=== PATIENT | male | born 1960 | race Caucasian/White ===

== ENCOUNTER 2019-09-26 16:42 | Inpatient (IN) | payer MEDICARE, MEDICAID, SELFPAY ==
[2019-09-26] VITALS (7 sets, daily range): BP systolic 116–153; BP diastolic 75–95; PULSE 76–90; RESP 13–20; TEMP 36.4; O2SAT 92–96; BMI 32.3
--- NOTE | 2019-09-26 16:44 | ED_ITS ---
Entered by Deonte Rudolph, acting as scribe for HPI - Chest Pain General: Chief Complaint: Chest Pain Stated Complaint: STEMI Time Seen by Provider: 09/26/19 16:58 History of Present Illness: HPI narrative: 59 yo male presents with chest pain. Pt states that his pain radiates to his arms and his back. Pt states that he has had this for a few days. Pt states that some sweating with his pain. Patient has had the pain intermittently last few days is not really changed in intensity is been coming and going while at rest he denies noticing anything that seems to exacerbate or worsen him. He has no known history of coronary artery disease. Patient is a known diabetic. Also has a history of hypertension. MD complaint: chest pain Prior episodes: No Onset: during rest Pain radiation: right arm, left arm and back Severity: moderate Quality: tightness and sharp Relieving factors: nothing Exacerbating factors: exertion Associated symptoms: Reports dyspnea; Deny abdominal pain, fever(s), nausea, palpitations, syncope or vomiting Treatment prior to arrival: nitroglycerin and oxygen Review of Systems Const: Denies: fever, chills, body aches, fatigue, malaise or night sweats Eyes: Denies: change in vision or blurry vision ENMT: Denies: throat pain, oral sores/lesions, dental pain, nasal discharge or nasal congestion Card: Reports: chest pain; Denies: palpitations, irregular heart rhythm, edema, syncope, shortness of julia ath on exertion, shortness of breath when lying down or leg pain with exertion Resp: Reports: shortness of breath GI: Denies: abdominal pain, nausea, vomiting, vomiting blood, coffee grounds in vomit, difficulty swallowing, heartburn/indigestion, diarrhea, constipation, cramping, blood in stool or black tarry stool : Denies: flank pain, difficulty urinating, painful urination, urinary frequency, urinary urgency, urinary incontinence or blood in urine Musc: Denies: neck pain, back pain, extremity pain, extremity swelling, joint pain or joint swelling Skin/Breast: Denies: rash, itching or redness Neuro: Denies: headache, numbness in extremities, weakness in extremities, changes in sensation, lack of coordination, difficulty walking, frequent falls, dizziness, vertigo or confusion Psych: Denies: anxiety, depression, loss of interest, visual hallucinations, auditory hallucinations, suicidal ideation or homicidal ideation Endo: Denies: excessive urination, excessive thirst, tired all the time or cold intolerance Evan/Lymph: Denies: easy bruising, easy bleeding, petechiae, enlarged lymph nodes or tender lymph nodes PFSH ED PFSH: Social History Smoking and tobacco status: former smoker Second hand smoke exposure: No Alcohol intake: never Desire information about alcohol rehabilitation?: No Counseling given: No Desire information about substance/drug rehabilitation?: No Counseling given: No Physical Exam Const: COMMON NORMALS: average body habitus, oriented x3 and alert GENERAL APPEARANCE: cooperative and well developed; not comfortable and not well kempt NUTRITIONAL APPEARANCE: obese ORIENTATION/CONSCIOUSNESS: Yes awake, Yes oriented to person and Yes oriented to place HENMT: COMMON NORMALS: normocephalic, head/scalp atraumatic, EAC's normal, TM's normal bilaterally, external nose normal, moist oral mucous membranes and oropharynx normal HEAD & SCALP: normocephalic and atraumatic NOSE: external nose normal EXTERNAL AUDITORY CANAL: EAC's normal TYMPANIC MEMBRANE: TM's normal bilaterally MOUTH: oral and palatal mucosa normal, lip normal and tongue normal THROAT: posterior oropharynx normal and tonsils normal Eye: COMMON NORMALS: PERRL, EOMs intact bilaterally, conjunctivae normal and no scleral icterus CONJUNCTIVA: Yes conjunctivae normal PUPIL: Yes PERRL Neck/C-Spine: COMMON NORMALS: full ROM, no lymphadenopathy, supple, no meningeal signs and thyroid normal THYROID: thyroid normal and asymmetrical Lymph: LYMPHATIC: no lymphadenopathy noted Resp: COMMON NORMALS: normal respiratory effort, no retractions, no use of accessory muscles and clear to auscultation bilaterally AUSCULTATION: clear to auscultation bilaterally Cardio: COMMON NORMALS: regular rate and regular rhythm RATE: regular rate RHYTHM: regular rhythm HEART SOUNDS: no murmurs GI: COMMON NORMALS: normal to inspection, nondistended, normoactive bowel sounds, soft to palpation and no hepatosplenomegaly PALPATION: Yes soft and Yes no hepatosplenomegaly : COMMON NORMALS: Yes no CVA tenderness BLADDER/KIDNEY EXAM: Yes no CVA tenderness Back/Pelvis: COMMON NORMALS: no CVA tenderness LUMBAR SPINE/LOWER BACK: Yes normal to inspection Extremity: COMMON NORMALS: no clubbing, cyanosis or edema, no calf tenderness and no pedal edema Neuro: COMMON NORMALS: oriented x3 SENSORIUM/ORIENTATION: Yes alert, Yes oriented to person and Yes oriented to place MENINGEAL SIGNS: Yes no meningeal signs Psych: APPEARANCE: No well kempt Skin: COMMON NORMALS: no rashes or lesions noted and skin turgor normal GENERAL SKIN EXAM: no rashes or lesions noted and turgor normal Course ED course: Review acute EKG shows acute STEMI. STEMI protocols initiated and cardiology called Dr. Mehta reviewed the EKG in the emergency room and is planning to take the patient to the [facility]. Vital Signs: Vital signs: Vital Signs Temperature 97.6 F 09/26/19 16:42 Pulse Rate 83 09/27/19 01:43 Respiratory Rate 20 H 09/26/19 21:36 Blood Pressure 139/91 09/26/19 18:49 Pulse Oximetry 96 09/27/19 01:43 MDM - Chest Pain Lab Data: Labs: Lab Results 09/26/19 09/26/19 09/26/19 Range/Units 16:30 16:30 16:30 WBC 18.4 H (4.0-10.0) 10^3/ uL RBC 4.92 (4.1-5.3) 10^6/u L Hgb 14.2 (11.7-16.6) g/dL Hct 42.8 (42.0-52.0) % MCV 87.0 (80-94) fL MCH 28.9 (28.0-34.0) pg MCHC 33.2 (30.0-36.0) g/dL RDW 14.0 (12.1-15.1) % Plt Count 429 H (130-400) 10^3/c mm MPV 9.5 (7.4-10.4) fL Neut % (Auto) 63.1 % Lymph % (Auto) 24.8 % [place] % (Auto) 10.2 % Eos % (Auto) 1.1 % Baso % (Auto) 0.3 % Neut # (Auto) 11.6 H (1.8-7.7) 10^3/u L Lymph # (Auto) 4.6 (0.8-4.8) 10^3/u L [place] # (Auto) 1.9 H (0.2-0.9) 10^3/u L Eos # (Auto) 0.2 (0.0-0.8) 10^3/u L Baso # (Auto) 0.1 (0.0-0.1) 10^3/u L Nucleated RBC % (a uto) 0 % Nucleated RBCs # 0.0 /100WBC PT 14.20 H (10.5-13.3) SECO NDS INR 1.07 (0.8-1.2) APTT 25.7 (23.9-36.7) SECO NDS Sodium 139 (136-145) mmol/L Potassium 3.9 (3.5-5.1) mmol/L Chloride 99 (98-107) mmol/L Carbon Dioxide 24 (22-29) mmol/L Anion Gap 19.9 H (5-19) BUN 15 (8-23) mg/dL Creatinine 1.0 (0.7-1.2) mg/dL GFR Calculation 76.2 L (90-130) mL/min Glucose 131 H (65-115) mg/dL Calcium 11.0 H (8.5-10.5) mg/dL Total Bilirubin 0.4 (0.15-1.2) mg/dL AST 26 (0-40) U/L ALT 30 (0-41) U/L Alkaline Phosphata se 42 (40-130) IU/L Troponin T Baselin e (0-15) ng/mL Troponin T 120 Min [place] (0-15) ng/mL Delta Troponin T (0-10) ABS# Total Protein 8.1 (6.6-8.7) g/dL Albumin 4.6 (3.5-5.2) g/dL Globulin 3.5 (1.3-4.6) g/dL 09/26/19 09/26/19 Range/Units 16:30 18:27 WBC (4.0-10.0) 10^3/ uL RBC (4.1-5.3) 10^6/u L Hgb (11.7-16.6) g/dL Hct (42.0-52.0) % MCV (80-94) fL MCH (28.0-34.0) pg MCHC (30.0-36.0) g/dL RDW (12.1-15.1) % Plt Count (130-400) 10^3/c mm MPV (7.4-10.4) fL Neut % (Auto) % Lymph % (Auto) % [place] % (Auto) % Eos % (Auto) % Baso % (Auto) % Neut # (Auto) (1.8-7.7) 10^3/u L Lymph # (Auto) (0.8-4.8) 10^3/u L [place] # (Auto) (0.2-0.9) 10^3/u L Eos # (Auto) (0.0-0.8) 10^3/u L Baso # (Auto) (0.0-0.1) 10^3/u L Nucleated RBC % (a uto) % Nucleated RBCs # /100WBC PT (10.5-13.3) SECO NDS INR (0.8-1.2) APTT (23.9-36.7) SECO NDS Sodium (136-145) mmol/L Potassium (3.5-5.1) mmol/L Chloride (98-107) mmol/L Carbon Dioxide (22-29) mmol/L Anion Gap (5-19) BUN (8-23) mg/dL Creatinine (0.7-1.2) mg/dL GFR Calculation (90-130) mL/min Glucose (65-115) mg/dL Calcium (8.5-10.5) mg/dL Total Bilirubin (0.15-1.2) mg/dL AST (0-40) U/L ALT (0-41) U/L Alkaline Phosphata se (40-130) IU/L Troponin T Baselin e 28 H (0-15) ng/mL Troponin T 120 Min [place] 1707 H (0-15) ng/mL Delta Troponin T 1679 H* (0-10) ABS# Total Protein (6.6-8.7) g/dL Albumin (3.5-5.2) g/dL Globulin (1.3-4.6) g/dL Discharge Plan Discharge Patient Disposition: Admitted As Inpatient Admit Provider: Hernandez Faria Clinical Impression: ST elevation (STEMI) myocardial infarction, Diabetes, Acute coronary syndrome, Essential hypertension Condition: Stable Referrals: Merna Chavez, SAFETY AND HEALTH MANAGER [Primary Care Provider] - Coding Level of Care Code ED Data Entry Representative for Chg Fwd Exam Comprehensive The documentation recorded by the Ronni lynn Kialy, accurately reflects the service I personally performed and the decisions made by Darian black Curtis L, DO Sep 26, 2019 17:00
[2019-09-26] MEDS: ticagrelor 90 mg Tablet 180 MG PO (16:54)
[2019-09-26] MEDS: morphine 4 mg/mL SDV 1 mL 2 MG IVP (16:55)
--- NOTE | 2019-09-26 16:55 | XACV_ITS ---
Ht: 178 cm Wt: 102 kg BSA: 2.28 m2 Gender: Male : 1960 Exam Priority: Routine Procedure(s): Procedure Description: Diagnostic procedure Procedure Description: PCI procedure Procedure Description: Drug Eluting Coronary Stent Procedure Description: PTCA Procedure Description: Miscellaneous Procedure Description: ACT Procedure Description: Coronary Angiography Diagnostic Cath Status: Elective Diagnostic Findings LM has 0% stenosis. CX has 0% stenosis. Proximal Left Anterior Descending Coronary Artery: Severe 100% stenosis, MARILY: 0 flow. RPDA: Mild 40% stenosis, MARILY: 3 flow. Coronary angiography shows right dominance. PCI Status: Urgent PCI Indication: STEMI - Immediate PCI for STEMI Interventional Findings Proximal Left Anterior Descending Coronary Artery: 100% stenosis treated with AB MINI TREK 2.00X20 RX BALLOON, REID Sidhu NINOSKA 3.5X34 JANIE, and MDT NATHANIEL EUPHORA RX [id number] BALLOON. 0% residual stenosis, MARILY: 3 flow. Conclusions There is severe coronary artery disease with two vessel disease. Proximal Left Anterior Descending Coronary Artery was treated with two Balloon and Drug Eluting Stent. Recommendations 1-Return to inpatient for close monitoring and routine cath care2-Risk factor modification for secondary prevention3-Statin and aspirin 81 mg life-long, if tolerated4-Patient was pre-loaded with 600 mg of Plavix, continue Plavix 75mg p.o. daily for at least one year. We will assess at the end of one year again to continue if further or not5-Continue optimal medical management6-Follow up with Dr. Faria in four weeks and your primary care in 10 days. Diagnostic RX Recommendation: PCI w/o planned CABG Pressures Phase:Rest AO : 137 mmHg / 78 mmHg ( 103 mmHg ) @ 11:41:00 AM Clinical Evaluation EBL: 5mL-10mL Procedural Details Procedure Consent Obtained. Pre-Procedure Time Out. Identified patient by full name and date of as verbalized by the patient/guarantor. Does the consent match the physician's order: Yes. Accurate & Complete Informed Consent: Yes. Inpatient/Outpatient History & Physical on Chart: N/A Emergent; Informed Consent not obtained due to time critical life threat. If H&P is completed, is and addenduem needed: N/A Emergent; Informed Consent not obtained due to time critical life threat; If yes, is the addendum complete: N/A Emergent; Informed Consent not obtained due to time critical life threat. Visualize and Verify Site with Patient/Guarantor: N/A. Relevant Radiology Images available: N/A Emergent; Informed Consent not obtained due to time critical life threat. Pre-op teaching completed and patient verbalized understanding. The risks, benefits, and alternatives of sedation and/or procedure were discussed by physician. The patient agrees to continue. Procedure started. Patient received the following in the ED prior to arrival in labor delivery specialist: 324mg Aspirin, 8mg Zofran, 2mg Nitro, 180mg Berlinta. Correct patient, site and procedure confirmed by cath team. Current diagnosis: STEMI. PERRLA. Strong, equal hand cognos consultant bilaterally. Lungs clear x 5 lobes. IV Site on Arrival: 20 gauge in the left anticubital. IV Site on Arrival: 20 gauge in the right forearm. IV Fluids: 0.9% NaCl at KVO. 0 mL infused prior to labor delivery specialist. Pre Procedural Pulses: bilateral dorsalis pedis was 2+. Pre Procedural Pulses: bilateral posterior tibial was 2+. Pre Procedural Pulses: bilateral radial was 3+. Oxygen started at 2liters/min via nasal canula. bilateral groins was prepped with chloroprep then draped in the usual sterile fashion. right radial was prepped with chloroprep then draped in the usual sterile fashion. Baseline sample Acquired. HR: 77 BPM. Physician arrived. Equipment: 6F - Radial. Contraqer Manifold Kit Model BT 2000. Cardiac Cath Pack. Heparinized Saline (2 units/mL), 1000 mL bag. Physician scrubbed in. Immediate Pre-Procedure Time Out. Correct Patient: Yes; Correct Procedure: Yes; Correct Site: Yes; Correct Patient Position: Yes; Correct Supplies: Yes; Dried Flammable Prep: Yes; Blood Products Available: No;. Lidocaine 1% infiltrated to the right radial. Arterial access obtained. A 5 brit[place] virgin islander TIG catheter in over wire. Multiple views taken of left coronary artery. Catheter redirected to the RCA. Multiple views taken of right coronary artery. Catheter out. 6 british virgin islander XB 3.5 guide catheter was inserted over the wire. Runthrough guidewire was advanced through the guide catheter to lesion in the prox LAD. Inflation number : 1 A AB MINI TREK 2.00X20 RX BALLOON was prepped and advanced across the Prox LAD , then inflated to 16 STEVEN for 0:22 seconds. Inflation number: 2 The AB MINI TREK 2.00X20 RX BALLOON was reinflated across the Prox LAD, to 16 STEVEN for 0:15 seconds. Balloon out. Inflation Number : 3 A MDT R NINOSKA 3.5X34 JANIE -Lot Number# [id number] was prepped and advanced across the Prox LAD. The stent was deployed at 12 STEVEN for 0:36 seconds. Stent expiration date: 03/23/2021. Stent balloon out over wire. Inflation number : 4 A MDT NC EUPHORA RX [id number] BALLOON was prepped and advanced across the Prox LAD , then inflated to 12 STEVEN for 0:27 seconds. Inflation number: 5 The MDT NC EUPHORA RX [id number] BALLOON was reinflated across the Prox LAD, to 10 STEVEN for 0:19 seconds. Results checked. ACT drawn. Results 256 seconds. Therapeutic limits - pre-heparin administration 90-150 seconds and monitoring heparin during a vascular procedure >250 seconds. Balloon out. Wire out. Guide catheter out. TR band placed. Hemostasis obtained. Post Procedure: Pulses reassessed and unchanged. PERRLA. Strong, equal hand cognos consultant bilaterally. No VTE prophylaxis required. Medication's Wasted: Lidocaine 1% = 5 mL. Medication's Wasted: Heparin = 1000 units mg. Total IV fluids: 100 mL. PCI Indication: STEMI. [facility] Clinical Fraility Score: 3: Managing Well. Senior Mobile Solutions Architect Indications: New Onset Angina. Chest Pain Symptom Assessment: Typical Angina Symptoms. Cardiovascular Instability: No. A TR Band was successful obtaining hemostatsis at the Right Radial artery insertion site. Contrast type used: Omnipaque 300 mgI/mL, 500 mL bottle. Post-op diagnosis: STEMI. Complications: None. Estimated blood loss: 5mL-10mL. Procedure completed. Vital chart was stopped. Patient transferred by wheelchair to CPRU. Site: Right Radial artery Sheath Size: 6 Fr Hemostasis Method: TR Band Hemostasis Success: Successful Procedure Medications Start: 5:10 PM Stop: 5:10 PM Medication: Versed Amount: 1 mg Route: I.V. Start: 5:10 PM Stop: 5:10 PM Medication: Fentanyl Amount: 50 mcg Route: I.V. Start: 5:14 PM Stop: 5:14 PM Medication: Heparin Amount: 7000 units Route: I.V. Start: 5:27 PM Stop: 5:27 PM Medication: Versed Amount: 1 mg Route: I.V. Start: 5:29 PM Stop: 5:29 PM Medication: Aggrastat 12.5 mg/250 mL Amount: 51 ml Route: I.V. bolus Start: 5:30 PM Stop: 5:30 PM Medication: Aggrastat 12.5 mg/250 mL Amount: 18.4 ml/hr Route: I.V. drip Start: 5:35 PM Stop: 5:35 PM Medication: Fentanyl Amount: 50 mcg Route: I.V. Start: 5:42 PM Stop: 5:42 PM Medication: Heparin Amount: 3000 units Route: I.V. I, the attending physician, have reviewed and verified all procedure medications. Yes, all medications given per verbal order History/Risk Factors Hypertension: No Dyslipidemia: No Peripheral Arterial Disease (PAD): No Myocardial Infarction (WI): No Obesity: Yes Renal Disease: No Tobacco Use: Former Prior Interventions PCI: No CABG: No Valve Surgery: No Report Signatures Finalized by:Hernandez Faria MD on 10/10/2019 7:19:17 PM
--- NOTE | 2019-09-26 16:58 | ECG_ITS ---
Measurements Intervals [place] Rate: 73 P: 63 LA: 197 QRS: -26 QRSD: 98 T: -10 QT: 400 QTc: 443 SINUS RHYTHM BORDERLINE LEFT AXIS DEVIATION [QRS AXIS < -20] MARKED ST ELEVATION, CONSIDER ANTEROSEPTAL INJURY [MARKED ST ELEVATION W/O NOR NORMALLY INFLECTED T WAVE IN V1-V4] ACUTE [place] Compared to ECG 11/15/2016 07:12:00 ST (T wave) deviation now present Myocardial infarct finding now present Electronically Signed On 09-27-2019 17:09:45 CLOTH STRETCHER by Fatmata Trejo M.D. [email or web address]
--- NOTE | 2019-09-26 17:04 | P.HP_ITS ---
Providers/Chief Complaint Admitting Physician: Hernandez Faria MD Primary Care Provider: DOMINIQUE Leigh Chief Complaint: STEMI History of Present Illness López Gamez is a 59 year old male brought in by EMS with chest pain and route EKG was suspicious for slight ST elevation in the septal leads with inferior lead ST depression. According to the patient this is going on for the last 2 days he was suffering from pain off and on basis but for the last couple of hours it is more consistent and intense therefore he decided to call EMS. He was given 325 mg of aspirin and 2 nitroglycerin along with 8 of Zofran. He felt somewhat better. Twelve-lead EKG in the ER was consistent with mild inferior lead ST depression with slight anterior ST elevation. Since patient continues to have chest pain we decided to take him to the [facility]. His past medical history significant for continuous tobacco abuse, diabetes mellitus and hypertension. He denies any history of CVA or bleeding. Review of Systems Const: Denies: fever, chills, body aches, fatigue, malaise or night sweats Eyes: Denies: change in vision or blurry vision ENMT: Denies: throat pain, oral sores/lesions, dental pain, nasal discharge or nasal congestion Card: Reports: chest pain; Denies: palpitations, irregular heart rhythm, edema, syncope, shortness of breath on exertion, shortness of breath when lying down or leg pain with exertion GI: Denies: abdominal pain, nausea, vomiting, vomiting blood, coffee grounds in vomit, difficulty swallowing, heartburn/indigestion, diarrhea, constipation, cramping, blood in stool or black tarry stool : Denies: flank pain, difficulty urinating, painful urination, urinary frequency, urinary urgency, urinary incontinence or blood in urine Musc: Denies: neck pain, back pain, extremity pain, extremity swelling, joint pain or joint swelling Skin/Breast: Denies: rash, itching or redness Neuro: Denies: headache, numbness in extremities, weakness in extremities, changes in sensation, lack of coordination, difficulty walking, frequent falls, dizziness, vertigo or confusion Psych: Denies: anxiety, depression, loss of interest, visual hallucinations, auditory hallucinations, suicidal ideation or homicidal ideation Endo: Denies: excessive urination, excessive thirst, tired all the time or cold intolerance Evan/Lymph: Denies: easy bruising, easy bleeding, petechiae, enlarged lymph nodes or tender lymph nodes Medications/Allergies Allergies Allergy/AdvReac Type Severity Reaction Status Date / Time No Known Allergies Allergy Unverified 08/17/19 16:04 PFSH Acute PFSH: Medical History (Updated 09/26/19 @ 17:07 by Hernandez Faria MD) COPD (chronic obstructive pulmonary disease) Patient is currently well controlled with Trelegy and rescue inhaler Diabetes Patient has DM II and is on oral meds. Paitent's glucose remains elevated, continue to titrate medications. Essential hypertension, benign Infection of toe web Patient has been treated for infection of foot with oral and topical meds. Vitamin D deficiency Surgical History S/P cholecystectomy 2017 Dr. Mcgill Social History Smoking and tobacco status: former smoker Second hand smoke exposure: No Alcohol intake: never Desire information about alcohol rehabilitation?: No Counseling given: No Desire information about substance/drug rehabilitation?: No Counseling given: No Vitals/I&O/Wt Last Vital Signs Temp 97.6 F 09/26/19 16:42 Pulse 76 09/26/19 17:00 Resp 18 09/26/19 17:00 BP 116/75 09/26/19 17:00 Pulse Ox 96 09/26/19 17:00 Weight last 48 hrs Weight 225 lb Physical Exam Narrative: EXAM NARRATIVE: GENERAL: Patient is alert, awake and oriented x3. He is in mild distress NECK: No jugular vein distension. HEENT: No cyanosis. No icterus. No pallor. HEART: Regular S1 and S2. No murmur, rub or gallop. LUNGS: Clear to auscultate bilaterally. ABDOMEN: Soft, nontender and nondistended. Positive bowel sounds. No guarding, rebound or tenderness. CENTRAL NERVOUS SYSTEM: Grossly nonfocal. EXTREMITIES: Lower extremities without edema bilaterally. A&P Assessment and plan (1) Acute coronary syndrome: Patient EKG and presentation is suspicious for acute coronary syndrome. Since he continues to have chest pain we will proceed with urgent coronary angiogram. He was loaded with Brilinta given aspirin and 4000 of heparin. Further plan will be advised as per progress of the patient. Status: Acute Code(s): I24.9 - Acute ischemic heart disease, unspecified (2) Essential hypertension: Patient dropped his blood pressure after nitro. No further nitroglycerin will be given at this moment. Continue IV fluid. Status: Acute Code(s): I10 - Essential (primary) hypertension (3) Diabetes: We will cover him with sliding scale for now. Status: Chronic Qualifiers: Diabetes mellitus type: type 2 Diabetes mellitus [facility] insulin use: without [facility] use Diabetes mellitus complication status: without complication Qualified Code(s): E11.9 - Type 2 diabetes mellitus without complications Code(s): E11.9 - Type 2 diabetes mellitus without complications Attestations Medical Necessity Statement*: I am expecting his stay to cross more than 2 midnights Coding Level of Care Code New Pt Acute Well Services Operator for [facility] Fwd Patient Type New History Detailed Exam Detailed Medical Decision Making High Complexity Diagnoses Acute coronary syndrome I24.9 Essential hypertension I10 Diabetes E11.9 Diabetes mellitus type: type 2 Diabetes mellitus medical terminologist insulin use: without [facility] use Diabetes mellitus complication status: without complication
[2019-09-26 17:08] LABS: Basophils # 0.1 10^3/uL (0.0-0.1); Basophils % 0.3 %; Eosinophils # 0.2 10^3/uL (0.0-0.8); Eosinophils % 1.1 %; Hematocrit 42.8 % (42.0-52.0); Hemoglobin 14.2 g/dL (11.7-16.6); Lymphocytes # 4.6 10^3/uL (0.8-4.8); Lymphocytes % 24.8 %; Mean Corpuscular HGB Conc 33.2 g/dL (30.0-36.0); Mean Corpuscular Hemoglobin 28.9 pg (28.0-34.0); Mean Platelet Volume 9.5 fL (7.4-10.4); Monocytes # 1.9 10^3/uL (0.2-0.9); Monocytes % 10.2 %; Neutrophils # 11.6 10^3/uL (1.8-7.7); Neutrophils % 63.1 %; Nucleated Red Blood Cells % 0 %; Platelet Count 429 10^3/cmm (130-400); Red Blood Count 4.92 10^6/uL (4.1-5.3); White Blood Count 18.4 10^3/uL (4.0-10.0)
[2019-09-26 17:13] LABS: INR 1.07 (0.8-1.2)
[2019-09-26 17:14] LABS: Partial Thromboplastin Time 25.7 SECONDS (23.9-36.7)
[2019-09-26 17:27] LABS: Alanine Aminotransferase 30 U/L (0-41); Albumin Level 4.6 g/dL (3.5-5.2); Alkaline Phosphatase 42 IU/L (40-130); Anion Gap 19.9 (5-19); Aspartate Amino Transferase 26 U/L (0-40); Blood Urea Nitrogen 15 mg/dL (8-23); Carbon Dioxide 24 mmol/L (22-29); Chloride 99 mmol/L (98-107); Globulin 3.5 g/dL (1.3-4.6); Glomerular Filtration Rate 76.2 mL/min (90-130); Glucose 131 mg/dL (65-115); Potassium 3.9 mmol/L (3.5-5.1); Sodium 139 mmol/L (136-145); Total Bilirubin 0.4 mg/dL (0.15-1.2); Total Protein 8.1 g/dL (6.6-8.7); Troponin(5th) Baseline 28 ng/mL (0-15)
--- NOTE | 2019-09-26 18:08 | USCV_ITS ---
López Gamez Age: 59 Gender: M : 1960 Exam Date: 09/26/2019 19:32 Ordering Phys: Hernandez Faria MD ([email or web address]) Technologist: Lorena Espino [place] [facility] [place]: [place]I BP: / HR: 81 Rhythm: Sinus Technical Quality: Adequate MEASUREMENTS (Male / Female) Normal Values 2D ECHO LV Diastolic Diameter PLAX 4.1 cm 4.2 - 5.9 / 3.9 - 5.3 cm LV Systolic Diameter PLAX 3.5 cm LV Chamber Size 3.0 cm IVS Diastolic Thickness 1.1 cm 0.6 - 1.0 / 0.6 - 0.9 cm IVS Systolic Thickness 1.7 cm LVPW Diastolic Thickness 1.6 cm 0.6 - 1.0 / 0.6 - 0.9 cm LVPW Systolic Thickness 2.6 cm RV Chamber Size 2.6 cm LVOT Diameter 2.0 cm LV Ejection Fraction 2D Teich 27.4 % LV Ejection Fraction MOD 2C 46.2 % LV Ejection Fraction 2C AL 47.3 % LA Diameter 4.1 cm LA Width 3.3 cm LA Height 4.9 cm RA Width 3.6 cm RA Height 4.7 cm M-MODE LV Diastolic Diameter MM 5.3 cm 4.2 - 5.9 / 3.9 - 5.3 cm LV Systolic Diameter MM 4.1 cm LV Ejection Fraction MM Teich 44.7 % IVS Diastolic Thickness MM 1.0 cm 0.6 - 1.0 / 0.6 - 0.9 cm IVS Systolic Thickness MM 1.2 cm LVPW Diastolic Thickness MM 0.9 cm 0.6 - 1.0 / 0.6 - 0.9 cm LVPW Systolic Thickness MM 1.2 cm Aortic Annulus Diameter 3.6 cm LA Ao Ratio MM 1.1 MV E Point Septal Separation 0.6 cm DOPPLER AV Peak Velocity 119.0 cm/s LVOT Peak Velocity 108.0 cm/s AV Area Cont Eq vti 3.1 cm squared AV Area Cont Eq pk 2.9 cm squared MV Area PHT 8.1 cm squared Mitral E to A Ratio 1.4 MV E' Velocity 13.0 cm/s Mitral E to MV E' Ratio 7.1 Mitral E to LV E' Lateral Ratio 6.1 Mitral E to LV E' Septal Ratio 8.5 TR Peak Velocity 126.0 cm/s TR Peak Gradient 6.4 mmHg TV Peak E Velocity 45.0 cm/s Right Atrial Pressure 3.0 mmHg Pulmonary Artery Systolic Pressu 9.4 mmHg PV Peak Velocity 73.0 cm/s RV Acceleration Time 0.2 s RV Ejection Time 0.4 s RV AcT/ET 0.6 FINDINGS Left Ventricle Normal left ventricular cavity size. Moderately decreased left ventricular systolic function. There appeared to be mid to distal anterior septal and apical severe hypokinesis consistent with LAD infarction.left ventricular ejection fraction is estimated at 40 %. Grade II/IV diastolic dysfunction, moderately elevated filling pressures. Right Ventricle The right ventricle is normal in size and function. Right Atrium The right atrium is normal in size. Left Atrium The left atrium is normal in size. Mitral Valve Mildly thickened mitral valve. No mitral valve stenosis. Moderate mitral valve regurgitation. Aortic Valve Structurally normal aortic valve without significant sclerosis or stenosis. There is no aortic regurgitation. Tricuspid Valve Structurally normal tricuspid valve without significant stenosis or regurgitation. Pulmonary artery systolic pressure is normal. Pulmonic Valve Structurally normal pulmonic valve without significant stenosis. There is no pulmonic regurgitation. Pericardium Normal pericardium without effusion. Aorta Normal ascending aorta dimension. CONCLUSIONS 1-Normal left ventricular cavity size. Moderately decreased left ventricular systolic function. There appeared to be mid to distal anterior septal and apical severe hypokinesis consistent with LAD infarction.left ventricular ejection fraction is estimated at 40 %. Grade II/IV diastolic dysfunction, moderately elevated filling pressures. 2-Mildly thickened mitral valve. No mitral valve stenosis. Moderate mitral valve regurgitation. 3-There is no pericardial effusion. 4-Pulmonary artery systolic pressure is within normal limits. 5-Right atrial pressure is around 5 mm of mercury. 6-There are no prior echocardiogram studies to compare. Hernandez Faria MD (Electronically Signed) Final Date: 28 September 2019 19:13 S
--- NOTE | 2019-09-26 18:28 | PC.NURSE ---
Received to CPRU Pt received to room from CPRU 4 post LHC. Alert and oriented. TR band intact to R radial, no hematoma or bleeding noted. Will monitor.
--- NOTE | 2019-09-26 19:00 | PC.NURSE ---
Report called REport called to [facility] in ICU at this time, all questions answered. Aggrastat discontinued at this time per Dr Faria orders.
[2019-09-26 19:09] LABS: Troponin 5 2HR 1707 ng/mL (0-15); Troponin 5 2HR Delta 1679 ABS# (0-10)
--- NOTE | 2019-09-26 19:23 | ECG_ITS ---
Measurements Intervals Floral Rate: 83 P: 63 ME: 192 QRS: -1 QRSD: 96 T: 72 QT: 383 QTc: 452 SINUS RHYTHM SEPTAL MYOCARDIAL INFARCTION [40+ ms Q WAVE IN V1/V2], PROBABLY RECENT Compared to ECG 11/15/2016 07:12:00 Myocardial infarct finding now present Electronically Signed On 09-27-2019 17:06:20 DUST PULLER by Fatmata Trejo M.D. [email or web address]
[2019-09-26] MEDS: atorvastatin 40 mg Tablet PO (21:35)
[2019-09-26] MEDS: ticagrelor 90 mg Tablet PO (21:35)
[2019-09-26] MEDS: morphine 4 mg/mL SDV 1 mL IVP (21:36)
[2019-09-26 22:45] LABS: Troponin 5 6HR 7861 ng/mL (0-15); Troponin 5 6HR Delta 7833 ng/L (0-12)
[2019-09-27 01:43] VITALS: PULSE 83; O2SAT 96
[2019-09-27 04:56] LABS: Basophils % 0.1 %; Eosinophils # 0.1 10^3/uL (0.0-0.8); Eosinophils % 0.6 %; Hematocrit 41.5 % (42.0-52.0); Hemoglobin 13.6 g/dL (11.7-16.6); Lymphocytes % 12.3 %; Mean Corpuscular HGB Conc 32.8 g/dL (30.0-36.0); Mean Corpuscular Hemoglobin 27.6 pg (28.0-34.0); Mean Corpuscular Volume 84.2 fL (80-94); Mean Platelet Volume 9.4 fL (7.4-10.4); Monocytes # 1.7 10^3/uL (0.2-0.9); Monocytes % 10.7 %; Neutrophils % 75.8 %; Nucleated Red Blood Cells % 0 %; Platelet Count 374 10^3/cmm (130-400); Red Blood Count 4.93 10^6/uL (4.1-5.3); Red Cell Distribution Width 14.2 % (12.1-15.1); White Blood Count 15.8 10^3/uL (4.0-10.0)
[2019-09-27 05:20] LABS: Anion Gap 18.6 (5-19); Blood Urea Nitrogen 10 mg/dL (8-23); Carbon Dioxide 25 mmol/L (22-29); Chloride 97 mmol/L (98-107); Chol HDL Ratio 5.13 mg/dL (1.0-5.00); Cholesterol 200 mg/dL (0-200); Glomerular Filtration Rate 98.6 mL/min (90-130); Glucose 195 mg/dL (65-115); HDL Cholesterol 39 mg/dL (60-100); LDL Cholesterol Calculated 113 mg/dL (50-129); Osmolality Calculated 285 mOsm/kg (285-295); Potassium 3.6 mmol/L (3.5-5.1); Sodium 137 mmol/L (136-145); Triglycerides 242 mg/dL (0-150)
[2019-09-27] MEDS: ticagrelor 90 mg Tablet PO ×2 (09:01→17:54)
[2019-09-27] MEDS: ondansetron 2 mg/ML SDV 2 mL 4 MG IVP (09:52)
[2019-09-27] MEDS: FUROsemide 10 mg/mL SDV 4mL 40 MG IVP (09:52)
--- NOTE | 2019-09-27 10:00 | PC.NURSE ---
Inquired if patient has a medication list which we might use to reconcile his meds in the medical record. Patient states he can cannot recall his meds and that he will ask his to bring his meds or make a list.
--- NOTE | 2019-09-27 10:33 | PC.CHAP ---
Pastoral Care Encounter/Spiritual Assessment Type of Contact [] Declined meat processor visit [] Patient/Family/Request visit [] Outpatient visit [] Follow-up visit [] Physician referral [] Code/Alert [x] Routine visit [] Staff referral [] Actively dying [] Patient sleeping [] Family support [] [] Out of room [] Palliative care [] [] Receiving care in room [] Pre-surgical visit [] Trauma [] Long length of stay [x] ICU visit [] Other: Relational/Emotional Strength [x] Patient feels connected with others/family/visitors/staff [] Distress [] Loneliness/isolation [] Abandonment Spirituality of Patient [] Person of Ellyn [] Attends Yarsani of their Ellyn [] Believes in Prayer [] Reads Bible or Baptism materials [x] There are Spiritual issues to be addressed Well Logging Mud Analysis Captain Interventions [x] Prayer [x] Active listening []x Non-anxious presence [x] Spiritual/emotional support [] Crisis/trauma care [x] Spiritual counseling [] Bereavement support [] Provided bereavement packet [] Provided Bible/devotional materials [] Provided toy/stuffed animal, coloring book to patient or family member [] Provided Communion [] Anointing/[place] [] Salvation [] Completed spiritual assessment [] Other: Impact on Illness or Injury [] Angry [] Fearful [] Anxious [] Often cries [] Exhaustion [] Unable to work [] Unable to attend muslim [] Unable to walk/stand [] Unable to read [] Unable to drive [] Unable to eat/drink [] Unable to sleep [] Unable to be with family [] Patient intubated [x] Other: n/a Summary Time spent with patient 10 minutes
--- NOTE | 2019-09-27 14:48 | PC.CHAP ---
Pastoral Care Encounter/Spiritual Assessment Type of Contact [] Declined loss control engineer visit [] Patient/Family/Request visit [] Outpatient visit [] Follow-up visit [] Physician referral [] Code/Alert [] Routine visit [] Staff referral [] Actively dying [] Patient sleeping [] Family support [] [] Out of room [] Palliative care [] [] Receiving care in room [] Pre-surgical visit [] Trauma [] Long length of stay [ICU visit [] Other: Relational/Emotional Strength [] Patient feels connected with others/family/visitors/staff [] Distress [] Loneliness/isolation [] Abandonment Spirituality of Patient [ Person of Ellyn [] Attends Shinto of their Ellyn [11 Believes in Prayer [] Reads Bible or Latter-Day materials [] There are Spiritual issues to be addressed Train Attendant Interventions [x] Prayer [] Active listening [ Non-anxious presence [ritual/emotional support [] Crisis/trauma care [] Spiritual counseling [] Bereavement support [] Provided bereavement packet [] Provided Bible/devotional materials [] Provided toy/stuffed animal, coloring book to patient or family member [] Provided Communion [x] Anointing/[place] [] Salvation [] Completed spiritual assessment [] Other: Impact on Illness or Injury [] Angry [] Fearful [] Anxious [] Often cries [] Exhaustion [] Unable to work [] Unable to attend congregational [] Unable to walk/stand [] Unable to read [] Unable to drive [] Unable to eat/drink [] Unable to sleep [] Unable to be with family [] Patient intubated [] Other: Summary Asleep Time spent with patient 1
--- NOTE | 2019-09-27 16:05 | PM.PN ---
Subjective Subjective: Interval history: Overall feeling better. He appeared to be short of breath which is expected after anterior wall CO. Medications: Reviewed: Yes Vitals/I&O/Wt Last Vital Signs Temp 97.6 F 09/26/19 16:42 Pulse 83 09/27/19 01:43 Resp 20 H 09/26/19 21:36 BP 139/91 09/26/19 18:49 Pulse Ox 96 09/27/19 01:43 09/27/19 09/27/19 09/27/19 06:59 14:59 22:59 Intake Total 700 / 700 0 / 700 Output Total 800 / 800 1780 / 1780 740 / 2520 Balance -800 / -320 -1080 / -1080 -740 / -1820 Weight last 48 hrs Weight 225 lb Physical Exam Narrative: EXAM NARRATIVE: GENERAL: Patient is alert, awake and oriented x3. NECK: No jugular vein distension. HEENT: No cyanosis. No icterus. No pallor. HEART: Regular S1 and S2. No murmur, rub or gallop. LUNGS: Clear to auscultate bilaterally. ABDOMEN: Soft, nontender and nondistended. Positive bowel sounds. No guarding, rebound or tenderness. CENTRAL NERVOUS SYSTEM: Grossly nonfocal. EXTREMITIES: Lower extremities without edema bilaterally. Data : 09/27/19 04:03 09/27/19 04:03 A&P Assessment and plan (1) Acute coronary syndrome: Proximal LAD stent for 100% totally occluded proximal LAD. Continue Brilinta continue aspirin statin. We will start patient on beta ricco and GABINO inhibitor. Echocardiogram will be obtained to assess LV function. Status: Acute Code(s): I24.9 - Acute ischemic heart disease, unspecified (2) Essential hypertension: Stable. Continue current regimen Status: Acute Code(s): I10 - Essential (primary) hypertension (3) Diabetes: Moderate sliding scale insulin to control blood sugar. Status: Chronic Code(s): E11.9 - Type 2 diabetes mellitus without complications Attestations Medical Necessity Statement*: Patient regarding continuation hospitalization for above defined. Coding Level of Care Code Established Pt Acute Library Monitor for Caleb Fwalen Patient Type Established History Expanded Problem Focused Exam Expanded Problem Focused Medical Decision Making Moderate Complexity Diagnoses Acute coronary syndrome I24.9 Essential hypertension I10 Diabetes E11.9
[2019-09-27 17:07] VITALS: BP 112/85; PULSE 87; RESP 17; TEMP 37; O2SAT 93
[2019-09-27 17:20] LABS: Glucose Point of Care 180 mg/dL (70-110)
[2019-09-27 18:59] VITALS: BP 124/84; PULSE 85; RESP 19; TEMP 36.7; O2SAT 95
[2019-09-27 20:22] LABS: Glucose Point of Care 143 mg/dL (70-110)
[2019-09-27] MEDS: atorvastatin 40 mg Tablet PO (20:28)
--- NOTE | 2019-09-27 20:30 | PC.NURSE ---
Patient refusing Milk of Magnesia. I don't need it...really don't want it.... This nurse explained to patient that that was his right to refuse. This nurse also explained to patient the need for medication. Voices understanding;however, still refuses to take med. Will monitor.
--- NOTE | 2019-09-27 21:21 | PC.NURSE ---
Monitor showing 10 beat run of V-Tach. Upon entering room, patient lying supine in bed. Denies discomfort. Skin warm and dry. Respirations even and unlabored. Did I hit the button or something? This nurse explained to patient that his heart rhythm showed something different and we were just checking on him. Voices understanding. Will monitor.
[2019-09-27 23:28] VITALS: BP 106/82; PULSE 96; RESP 18; TEMP 36.3; O2SAT 93
--- NOTE | 2019-09-27 23:46 | PC.NURSE ---
Complaining of butt hurting from the bed. Bed switched out while patient was in chair. This feels a little better....just not as good as my bed at home. Will monitor.
[2019-09-28 04:19] VITALS: BP 94/70; PULSE 79; RESP 24; TEMP 36.4; O2SAT 93
[2019-09-28 06:31] LABS: Glucose Point of Care 170 mg/dL (70-110)
[2019-09-28 07:22] VITALS: BP 93/73; PULSE 81; RESP 20; TEMP 36.4; O2SAT 97
--- NOTE | 2019-09-28 08:53 | PC.NURSE ---
Spoke with pt re card rehab Education packet given and discussed States he lives too far to participate Advised him to call us if he has any questions or if his circumstances change Verbalized understanding
[2019-09-28] MEDS: ticagrelor 90 mg Tablet PO ×2 (08:59→17:48)
[2019-09-28 11:01] VITALS: BP 110/68; PULSE 83; RESP 21; O2SAT 92
[2019-09-28 11:32] LABS: Glucose Point of Care 196 mg/dL (70-110)
[2019-09-28] MEDS: FUROsemide 10 mg/mL SDV 4mL 40 MG IVP (12:15)
[2019-09-28 16:16] VITALS: BP 120/86; PULSE 85; RESP 18; TEMP 36.6; O2SAT 93
[2019-09-28 17:05] LABS: Glucose Point of Care 217 mg/dL (70-110)
[2019-09-28 20:46] VITALS: BP 116/84; PULSE 84; RESP 24; TEMP 36.9; O2SAT 93
[2019-09-28] MEDS: atorvastatin 40 mg Tablet PO (21:24)
--- NOTE | 2019-09-28 21:30 | PC.NURSE ---
Patient refused MOM once again this shift. I had a good poop today. Will monitor.
[2019-09-28 21:38] LABS: Glucose Point of Care 203 mg/dL (70-110)
[2019-09-29 00:22] VITALS: BP 126/93; PULSE 84; RESP 22; TEMP 36.6; O2SAT 94
[2019-09-29 04:50] VITALS: BP 125/81; PULSE 87; RESP 22; TEMP 36.6; O2SAT 96
--- NOTE | 2019-09-29 05:47 | PC.NURSE ---
Ambulated patient from room to nurses station and back to room. Tolerated fair. Slightly short of breath upon returning to room. Oxygen saturation 95% on room air. Oxygen off since patient doesn't wear oxygen at home. States, Thank you. Will monitor.
[2019-09-29 06:44] LABS: Glucose Point of Care 171 mg/dL (70-110)
[2019-09-29 07:18] VITALS: BP 98/76; PULSE 86; RESP 22; TEMP 36.4; O2SAT 92
[2019-09-29] MEDS: metoprolol succinate ER (24 HR) 25 mg Tablet 12.5 MG PO (08:47)
[2019-09-29] MEDS: ticagrelor 90 mg Tablet PO (08:47)
--- NOTE | 2019-09-29 09:18 | PC.SOCIAL ---
Pg 2 IMM Explained to pt Pg 2 IMM. Pt verbally understands & signed. No questions voiced. Provided a copy to pt & left on pt's bedside table. Signed, dated, & timed, then placed in chart.
--- NOTE | 2019-09-29 10:01 | P.DS_ITS ---
Discharge Providers Date of Admission: 09/26/19 19:15 Date of Discharge: September 29, 2019 Attending Provider at Admission: Hernandez Faria MD Attending Provider at Discharge: Hernandez Faria MD Primary Care Provider: DOMINIQUE Leigh Diagnoses at Discharge Discharge Diagnosis (1) Acute coronary syndrome: Status: Acute Problem details: Status post PCI to proximal LAD with drug-eluting stent. (2) Essential hypertension: Status: Acute Problem details: Controlled. (3) Diabetes: Status: Chronic Problem details: Patient has DM II and is on oral meds. Paitent's glucose remains elevated, continue to titrate medications. Reason for Visit Reason for Visit: Reason For Visit: STEMI Hospital Course Hospital Course: 59-year-old male presented with ST elevation [place] of anterior wall. He was treated with drug-eluting stent to proximal LAD which was 100% occluded. Postop course remains uncomplicated. Patient left ventricle ejection fraction was moderately depressed to 45%. He also developed new onset of heart failure patient was treated with IV Lasix. Currently he is well compensated. He is walking around without any difficulty. He denies chest pain shortness of breath PND orthopnea. He was started on Brilinta, metoprolol and baby aspirin. His statin has been changed to atorvastatin while started him on beta-ricco. Patient has been advised to keep a log of blood pressure pulse and send it to us after 10 days. He will be seeing us in the clinic in 7 days. He is instructed to follow-up with his primary care physician within 2 weeks. Discharge Summary: As above Physical Exam Narrative: EXAM NARRATIVE: GENERAL: Patient is alert, awake and oriented x3. NECK: No jugular vein distension. HEENT: No cyanosis. No icterus. No pallor. HEART: Regular S1 and S2. No murmur, rub or gallop. LUNGS: Clear to auscultate bilaterally. ABDOMEN: Soft, nontender and nondistended. Positive bowel sounds. No guarding, rebound or tenderness. CENTRAL NERVOUS SYSTEM: Grossly nonfocal. EXTREMITIES: Lower extremities without edema bilaterally. Discharge Data Data Completed and Pending: Completed Studies During Hospitalization Category Date Time Status CV echo complete* [id number] Routine Ultrasound 09/26/19 18:08 Completed Pending at discharge Category Date Time Status MOTION PICTURE CAMERA OPERATOR request for service Urgent Exams 09/26/19 16:55 Taken Labs from last 24 hours 09/29/19 09/28/19 09/28/19 06:24 20:48 16:15 POC Glucose 171 203 217 09/28/19 11:02 POC Glucose 196 Vitals: Last Vital Signs Temp 97.6 F 09/29/19 07:18 Pulse 86 09/29/19 07:18 Resp 22 H 09/29/19 07:18 BP 98/76 09/29/19 07:18 Pulse Ox 92 09/29/19 07:18 Discharge Plan Discharge Patient Disposition: Home, Self-Care Condition: Stable Prescriptions: New atorvastatin 40 mg Tablet 40 mg PO BEDTIME Qty: 30 RF: 4 metoprolol succinate 25 mg Tablet Extended Release 24 Hr 12.5 mg PO DAILY Qty: 30 RF: 4 Brilinta 90 mg Tablet 90 mg PO BID Qty: 180 RF: 4 lisinopril 2.5 mg tablet 2.5 mg PO DAILY Qty: 30 RF: 6 aspirin 81 mg tablet,delayed release (DR/EC) 81 mg PO DAILY Qty: 90 RF: 6 Lasix 20 mg tablet 20 mg PO DAILY Qty: 30 RF: 6 potassium chloride 10 mEq capsule, extended release 10 meq PO DAILY Qty: 30 RF: 5 Continued citalopram 20 mg tablet 20 ea PO DAILY RF: 0 Ventolin HFA 90 mcg/actuation Hfa Aerosol Inhaler 1 inh INHALATION QID PRN (Reason: Shortness Of Breath) RF: 0 glipizide 10 mg Tablet 20 mg PO DAILY RF: 0 omeprazole 40 mg Capsule,Delayed Release(Dr/Ec) 40 mg PO DAILY RF: 0 metformin 1,000 mg Tablet 1,000 mg PO BID RF: 0 Januvia 100 mg Tablet 100 mg PO DAILY RF: 0 vitamin D3-folic acid 5,000 unit- 1 mg Tablet 1 tab PO DAILY RF: 0 Trelegy Ellipta 100-62.5-25 mcg Blister With Device 1 inh INHALATION DAILY RF: 0 Discontinued lisinopril 20 mg Tablet 20 mg PO DAILY RF: 0 lovastatin 10 mg Tablet 30 mg PO QPM RF: 0 fenofibrate nanocrystallized 145 mg Tablet 145 mg PO DAILY RF: 0 Discharge Orders: Discharge Order (Routine); Ordered 09/29/19 Ordered By: Hernandez Faria Referrals: Merna Chavez, RADIATION / CHEMISTRY TECHNICIAN [Primary Care Provider] - (You have a hospital followup with ALEXSANDRA Chavez at [facility] on October 03 at 1:00pm. Any questions or appointment changes, please call them at [phone]) Discharge Diet: Cardiac and Diabetic Patient Instructions: Coronary Angioplasty (DC) Activity Restrictions/Additional Instructions: Do not lift anything heavier than a gallon of milk for next couple of days. After that there is no restriction. If you started noticing shortness of breath swelling of the feet or legs or gaining more than 3 pounds and to contact 2 days take extra Lasix along with potassium that day and call Dr. Mehta's office. Follow-up with Hetal Sue cardiology nurse practitioner in 7 days in cardiology clinic and Dr. Faria in 6 to 8 weeks. Discharge Attestations Time Spent in Discharge Care*: greater than 30 min Quality Metrics Clinical Quality Measures During this hospital stay, did patient experience: AMI Clinical Trial Participant: No Contraindication to aspirin (AMI): Aspirin given Contraindication to statin: Statin prescribed Contraindication to PCI: PCI performed Contraindication to Fibrinolytics: Alternative treatment initiated Coding Level of Care Code New Pt Acute Tire Builder Operator for Chg Fwd Patient Type New History Detailed Exam Detailed Medical Decision Making Moderate Complexity Diagnoses Acute coronary syndrome I24.9 Essential hypertension I10 Diabetes E11.9
[2019-09-29 10:26] VITALS: BP 98/76; PULSE 86; RESP 22; TEMP 36.4; O2SAT 92
[2019-09-29 11:17] VITALS: BP 95/76; PULSE 71; RESP 22; TEMP 36.7
[2019-09-29 11:41] LABS: Glucose Point of Care 172 mg/dL (70-110)
== END 2019-09-29 11:29 | disposition home or self-care (01) | DRG 247 ==
LOC: ER 17:28 → CCL 17:40 → ICU 19:18 → CSU 09-27 16:57
PROVIDERS: Admitting Provider Internal Medicine Cardiovascular Disease; Emergency Provider Family Medicine; PCP Nurse Practitioner Family; Visit Provider Internal Medicine Cardiovascular Disease
DX: I21.09 ST elevation (STEMI) myocardial infarction involving other coronary artery of anterior wall (principal); I24.9 Acute ischemic heart disease, unspecified; I10 Essential (primary) hypertension; E11.9 Type 2 diabetes mellitus without complications; J44.9 Chronic obstructive pulmonary disease, unspecified; E55.9 Vitamin D deficiency, unspecified; Z79.82 Long term (current) use of aspirin; Z79.84 Long term (current) use of oral hypoglycemic drugs; Z79.899 Other long term (current) drug therapy
CPT/HCPCS: 12345; 36415; 36416; 80048; 80053; 80061; 82962; 84484; 85025; 85347; 85610; 85730; 93005; 93306; 93454; 96372; 96375; 99282; C1725; C1769; C1874; C1887; C1894; C9606; J1644; J1815; J1940; J2001; J2250; J2270; J2405; J3010; J3246; Q9967

== ENCOUNTER → 2019-10-05 14:45 | Outpatient (BNVA) | payer MEDICARE, MEDICAID, SELFPAY | PROVIDERS: PCP Nurse Practitioner Family; Visit Provider Nurse Practitioner Family | DX: I25.119 Atherosclerotic heart disease of native coronary artery with unspecified angina pectoris (principal) | CPT/HCPCS: 80048 ==

== ENCOUNTER → 2019-12-14 14:08 | Outpatient (BNVA) | payer MEDICARE, MEDICAID, SELFPAY | PROVIDERS: PCP Nurse Practitioner Family; Visit Provider Nurse Practitioner Family | DX: I10 Essential (primary) hypertension (principal); E11.9 Type 2 diabetes mellitus without complications | CPT/HCPCS: 80053; 81001; 83036; 85025 ==

== ENCOUNTER → 2019-12-23 10:28 | Outpatient (BNVA) | payer MEDICARE, MEDICAID, SELFPAY | PROVIDERS: PCP Nurse Practitioner Family; Visit Provider Nurse Practitioner Family | DX: E11.59 Type 2 diabetes mellitus with other circulatory complications (principal); R39.15 Urgency of urination | CPT/HCPCS: 81001 ==

== ENCOUNTER → 2020-03-08 09:55 | Outpatient (BNVA) | payer MEDICARE, MEDICAID, SELFPAY | PROVIDERS: PCP Nurse Practitioner Family; Visit Provider Nurse Practitioner Family | DX: E11.59 Type 2 diabetes mellitus with other circulatory complications (principal); I10 Essential (primary) hypertension; E78.2 Mixed hyperlipidemia; E55.9 Vitamin D deficiency, unspecified; R53.1 Weakness | CPT/HCPCS: 80053; 80061; 81001; 82306; 83036; 84443; 85025 ==

== ENCOUNTER → 2020-03-22 10:51 | Outpatient (BNVA) | payer MEDICARE, MEDICAID, SELFPAY | PROVIDERS: PCP Nurse Practitioner Family; Visit Provider Nurse Practitioner Family | DX: E11.59 Type 2 diabetes mellitus with other circulatory complications (principal) | CPT/HCPCS: 80053 ==

== ENCOUNTER 2020-03-23 10:47 | Outpatient (CLI) | payer MEDICARE, MEDICAID, SELFPAY ==
--- NOTE | 2020-03-23 10:53 | XRR_ITS ---
PROCEDURE INFORMATION: Exam: XR Left Hip with Pelvis Exam date and time: 03/23/2020 11:25 AM Age: 60 years old Clinical indication: Injury or trauma; Fall; Initial encounter; Blunt trauma (contusions or hematomas); Injury date: 3/4 days ago; Patient HX: PT fell stepped in a hole-twisting when fell. C/O lumbar spine pain and left hip pain radiating into left buttock; Additional info: Fall at home with twist injury TECHNIQUE: Imaging protocol: XR Left hip with pelvis Views: Three views of the left hip, including AP pelvis. COMPARISON: CR XR lumbar spine 6V w f/e [id number] 03/23/2020 11:00 AM FINDINGS: Bones/joints: Hypertrophy of the anterior femoral head-neck junction is present with a convex lateral appearance. Small posterior femoral head articular marginal osteophyte. L4-L5 degenerative disc narrowing. Lumbar spine vertebral body marginal osteophytes are noted at multiple levels. Bilateral lower lumbar facet primary osteoarthritis. Soft tissues: Unremarkable. XR/XR hip LT 2-3V wo/w pel* [id number] IMPRESSION: 1. Possible femoro-acetabular impingement. Clinical correlation with any patient's specific symptomatology is recommended. 2. Primary osteoarthritis left hip, mild.
--- NOTE | 2020-03-23 10:53 | XRR_ITS ---
PROCEDURE INFORMATION: Exam: XR Lumbosacral Spine Complete with Flexion/Extension, 6 or More Views Exam date and time: 03/23/2020 11:29 AM Age: 60 years old Clinical indication: Injury or trauma; Initial encounter; Blunt trauma (contusions or hematomas); Injury date: 3/4 days ago; Injury details: PT stepped in a hole and twisted falling. ; Patient HX: C/O pain lumbar spine and left hip after fall. Pain radiates to left buttock; Additional info: Fall athome with twist injury TECHNIQUE: Imaging protocol: XR of the lumbosacral spine with flexion/extension, 6 or more views. COMPARISON: No relevant prior studies available. FINDINGS: Vertebrae: Lumbar spine vertebral body marginal osteophytes are noted at multiple levels. Mild L3-L4 and moderate L4-L5 spondylosis. Bilateral L3-L4, L4-L5 and L5-S1, right L2-L3 lumbar facet primary osteoarthritis. No instability with flexion or extension positioning identified. Soft tissues: Unremarkable. XR/XR lumbar spine 6V w f/e [id number] IMPRESSION: 1. Degenerative changes as above. 2. No acute lumbar spinal bony abnormality identified. 3. No instability with flexion or extension positioning identified.
== END 2020-03-23 10:48 | disposition home or self-care (01) ==
LOC: RAD 10:50
PROVIDERS: PCP Nurse Practitioner Family; Visit Provider Nurse Practitioner Family
DX: M54.5 Low back pain (principal); M25.552 Pain in left hip; M16.12 Unilateral primary osteoarthritis, left hip
CPT/HCPCS: 72114; 73502

== ENCOUNTER → 2020-07-19 11:00 | Outpatient (BNVA) | payer MEDICARE, MEDICAID, SELFPAY | PROVIDERS: PCP Nurse Practitioner Family; Visit Provider Nurse Practitioner Family | DX: E11.59 Type 2 diabetes mellitus with other circulatory complications (principal) | CPT/HCPCS: 80053; 81003; 83036; 85025 ==

== ENCOUNTER 2020-11-04 15:48 | Emergency (ER) | payer MEDICARE, MEDICAID, SELFPAY ==
[2020-11-04 15:52] VITALS: BMI 28.7
[2020-11-04 15:59] VITALS: BP 127/71; PULSE 67; RESP 16; TEMP 36.8; O2SAT 97
--- NOTE | 2020-11-04 16:01 | XRR_ITS ---
PROCEDURE INFORMATION: Exam: XR Left Finger(s) Exam date and time: 11/04/2020 4:03 PM Age: 60 years old Clinical indication: Injury or trauma; Other: Smashed with hammer; Crushing; Finger; Left; Thumb; Additional info: Left thumb injury TECHNIQUE: Imaging protocol: XR Left fingers. Views: Minimum 2 views. COMPARISON: No relevant prior studies available. FINDINGS: Bones/joints: Severely comminuted fracture 1st distal phalanx. Extension into IP joint. Joint space alignment unremarkable. Soft tissues: Overlying soft tissue deformity of finger nail and nail bed. No soft tissue foreign body. XR/XR finger LT min 2V [id number] IMPRESSION: Severely comminuted intra-articular 1st distal phalanx fracture with overlying soft tissue injury.
[2020-11-04] MEDS: tetanus-dipt-pertussis 0.5 mL SDV IM (16:21)
--- NOTE | 2020-11-04 17:51 | W.ED.WOUNDLC ---
HPI - Wound/Laceration General: Chief Complaint: Wound/Laceration Stated Complaint: LEFT THUMB INJURY Time Seen by Provider: 11/04/20 15:49 Source: patient Mode of arrival: EMS Limitations: no limitations History of Present Illness: HPI narrative: 1-year-old male was working with his friends to cannot scrub, he was using a sledgehammer to break down a grill and his friend unfortunately moved the grill as he was about to hit it moving his left thumb and he hit his left thumb with a sledgehammer. Sustained a laceration to the distal part of his left thumb and he is here to be seen for this. Extremity Location: Left: hand Place: home Patient tetanus UTD: No Context: accidental Associated symptoms: Reports pain; Denies chills, fever(s), foreign body sensation, inability to move, nausea, numbness, syncope or vomiting Review of Systems General: Reports: 10 or more systems reviewed and unremarkable except in HPI and below Const: Denies: fever(s) or chills Card: Denies: syncope GI: Denies: nausea or vomiting PFS ED PFSH: Medical History CHF (congestive heart failure) COPD (chronic obstructive pulmonary disease) Patient is currently well controlled with Trelegy and rescue inhaler Diabetes Patient has DM II and is on oral meds. Patient's glucose remains elevated, continue to titrate medications. Essential hypertension, benign Infection of toe web Patient has been treated for infection of foot with oral and topical meds. Influenza vaccine needed Mixed hyperlipidemia Osteoarthritis Urgency of urination Vitamin D deficiency Surgical History Presence of stent in LAD coronary artery Drug-eluting stent to proximal LAD 09/26/19 S/P cholecystectomy 2017 Dr. Mcgill Social History Smoking and tobacco status: former smoker Second hand smoke exposure: No Alcohol intake: never Desire information about alcohol rehabilitation?: No Counseling given: No Desire information about substance/drug rehabilitation?: No Counseling given: No Physical Exam Const: COMMON NORMALS: no acute distress, average body habitus, patient oriented x3, no limitations, healthy appearing, alert and well nourished Neck/C-Spine: COMMON NORMALS: no meningeal signs and no JVD Resp: COMMON NORMALS: normal respiratory effort, No retractions, No use of accessory muscles, clear to auscultation bilaterally and percussion normal AUSCULTATION: clear to auscultation bilaterally PERCUSSION: percussion normal Cardio: COMMON NORMALS: no JVD, regular rate, regular rhythm, S1 normal heart sound present, S2 normal heart sound present, No gallops present (Cardio), No clicks present (Cardio), No murmurs present (Cardio), No rub (Cardio) and Peripheral pulses 2+ throughout RATE: regular rate RHYTHM: regular rhythm HEART SOUNDS: S1 normal heart sound present and S2 normal heart sound present PERIPHERAL PULSES: Peripheral pulses 2+ throughout GI: COMMON NORMALS: Normal to inspection, nondistended, normoactive bowel sounds present, Soft to palpation, non-tender, No hepatosplenomegaly present, no masses and no bruits PALPATION: Yes Soft to palpation and Yes No hepatosplenomegaly present Extremity: COMMON NORMALS: normal to inspection, full ROM, capillary refill normal, no calf tenderness and no pedal edema LEFT UPPER EXTREMITY: Yes hand & digits (There is a jagged 2 cm wound on the medial edge of his proximal nail dorsal) Left hand and digits: Yes inspection (Laceration to the proximal nail with partial avulsion of the nail. ), Yes palpation (Mild tenderness to palpation), Yes ROM (Normal range of motion), Yes neurovascular exam (Intact) and Yes other (Hematoma under the nail bed) Neuro: COMMON NORMALS: patient oriented x3 SENSORIUM/ORIENTATION: Yes alert MENINGEAL SIGNS: Yes no meningeal signs Skin: COMMON NORMALS: no rashes or lesions noted, no wounds, turgor normal, no jaundice, no petechiae and no mottling GENERAL SKIN EXAM: no rashes or lesions noted and turgor normal Procedures Laceration Laceration 1: Site: hand Side (If applicable): left Size (cm): 1 Description: irregular Depth: simple, single layer Local Anesthetic: lidocaine 1% Amount of anesthesia used (mL): 5 Pre-repair: wound explored and irrigated extensively Skin layer closed with: nylon Size (cm): 4-0 Number of sutures: 2 Nerve Block Nerve Block 1: Time out performed: Yes Local Anesthetic: lidocaine 1% Side: left Nerve Blocks: digital Procedure Successful: Yes Patient Tolerated Procedure: well Complications: none Orthopedic Splinting/Casting Injury #1: Side: left Upper Extremity Injury Location: finger Upper Extremity Immobilizer: aluminum form splint Course Vital Signs: Vital signs: Vital Signs Temperature 98.2 F 11/04/20 15:59 Pulse Rate 69 11/04/20 18:04 Respiratory Rate 15 11/04/20 18:04 Blood Pressure 132/75 11/04/20 18:04 Pulse Oximetry 94 11/04/20 18:04 MDM - Wound/Laceration MDM Narrative: Medical decision making narrative: 60-year-old male who injured his left thumb when he hit it with a sledgehammer accidentally. He sustained comminuted fracture of his distal phalanx of the left thumb as well as a laceration and injury to the nail. Wound was thoroughly cleaned, nailbed repaired, trephination of the nail was done to relieve the underlying hematoma. Nail attached to the nailbed using tissue adhesive. He is discharged home with a prescription for pain medication and antibiotic. He was unwilling to be transferred to see a hand surgeon and will follow up with his primary care provider. The finger was placed in a finger splint. Wound care instructions given to the patient as well as splint care. He voiced understanding and is in agreement with the plan. Medical Records: Attestation: I reviewed the patient's medical records. Imaging Data^: Xray Ortho: Attestation: I personally reviewed and interpreted this imaging study as follows: Radiologist's impression: [address] [address] XRay Report Signed Patient: Linda Gamez #: [id number] : 9Acct#:[id number] Age/Sex: 60 / MADM Date: 11/04/20 Loc: ERRoom/Bed: Attending Dr: Ordering Provider/Ordering MD: David Pelaez MD, [facility] [place] Date of Service: 11/04/20 Procedure(s): XR finger LT min 2V [id number] Accession Number(s): [id number] Report Number: [id number] PROCEDURE INFORMATION: Exam: XR Left Finger(s) Exam date and time: 11/04/2020 4:03 PM Age: 60 years old Clinical indication: Injury or trauma; Other: Smashed with hammer; Crushing; Finger; Left; Thumb; Additional info: Left thumb injury TECHNIQUE: Imaging protocol: XR Left fingers. Views: Minimum 2 views. COMPARISON: No relevant prior studies available. FINDINGS: Bones/joints: Severely comminuted fracture 1st distal phalanx. Extension into IP joint. Joint space alignment unremarkable. Soft tissues: Overlying soft tissue deformity of finger nail and nail bed. No soft tissue foreign body. XR/XR finger LT min 2V [id number] IMPRESSION: Severely comminuted intra-articular 1st distal phalanx fracture with overlying soft tissue injury. Dictated By:Cristopher Angel Signed By:Carol Angel Date/Time:11/04/201644 DD/ 42 Discharge Plan Discharge Patient Disposition: Home Clinical Impression: Distal phalanx or phalanges, closed fracture Qualifiers: Encounter type: initial encounter Finger: thumb Fracture alignment: nondisplaced Laterality: left Qualified Code(s): S62.525A - Nondisplaced fracture of distal phalanx of left thumb, initial encounter for closed fracture Laceration of finger of left hand Qualifiers: Encounter type: initial encounter Finger: thumb Damage to nail status: with damage Foreign body presence: without foreign body Qualified Code(s): S61.112A - Laceration without foreign body of left thumb with damage to nail, initial encounter Condition: Stable Prescriptions: New hydrocodone-acetaminophen 5-325 mg tablet 1 tab PO Q8H PRN (Reason: pain) Qty: 12 RF: 0 cephalexin 500 mg capsule 500 mg PO Q6H 7 Days Qty: 28 RF: 0 Continued (DME) Precision Xtra Test Strip See Rx Instructions .ROUTE .MEDSUPPLY Qty: 100 RF: 5 (DME) Precision Xtra Test Strip See Rx Instructions .ROUTE .MEDSUPPLY Qty: 100 RF: 2 Ventolin HFA 90 mcg/actuation HFA aerosol inhaler 1 inh INHALATION QID PRN (Reason: Shortness Of Breath) Qty: 18 RF: 2 ibuprofen 800 mg tablet 800 mg PO Q8H PRN (Reason: pain) Qty: 90 RF: 2 lisinopril 2.5 mg tablet 2.5 mg PO DAILY Qty: 90 RF: 3 atorvastatin 40 mg tablet 40 mg PO BEDTIME Qty: 90 RF: 3 metoprolol succinate 25 mg tablet extended release 24 hr 12.5 mg PO DAILY Qty: 45 RF: 3 glipizide 10 mg tablet See Rx Instructions .ROUTE .COMPLEX Qty: 60 RF: 5 sitagliptin [Januvia] 100 mg tablet See Rx Instructions .ROUTE .COMPLEX Qty: 30 RF: 2 metformin 1,000 mg tablet See Rx Instructions .ROUTE .COMPLEX Qty: 60 RF: 2 (DME) blood-glucose meter [Accu-Chek Isabel Plus Meter] Misc See Rx Instructions .ROUTE .MEDSUPPLY Qty: 1 RF: 0 (DME) Accu-Chek Isabel Plus test strp Strip See Rx Instructions .ROUTE .MEDSUPPLY Qty: 100 RF: 5 aspirin 81 mg tablet,delayed release (DR/EC) See Rx Instructions .ROUTE .COMPLEX Qty: 90 RF: 3 Brilinta 90 mg tablet 90 mg PO BID Qty: 180 RF: 4 cyclobenzaprine 10 mg tablet See Rx Instructions .ROUTE .COMPLEX Qty: 30 RF: 2 citalopram 20 mg tablet See Rx Instructions .ROUTE .COMPLEX Qty: 30 RF: 0 wrbnqepzvps-ktmdqyusl-biuygxgl [Trelegy Ellipta] 100-62.5-25 mcg blister with device See Rx Instructions .ROUTE .COMPLEX Qty: 60 RF: 0 potassium chloride 20 mEq tablet,ER particles/crystals See Rx Instructions .ROUTE .COMPLEX Qty: 30 RF: 0 omeprazole 40 mg capsule,delayed release(DR/EC) See Rx Instructions .ROUTE .COMPLEX Qty: 30 RF: 0 empagliflozin [Jardiance] 10 mg tablet See Rx Instructions .ROUTE .COMPLEX Qty: 30 RF: 0 Trelegy Ellipta 100-62.5-25 mcg blister with device See Rx Instructions .ROUTE .COMPLEX Qty: 60 RF: 0 vitamin D3-folic acid 5,000 unit- 1 mg Tablet 1 tab PO DAILY RF: 0 Discharge Orders: Discharge ED (Routine); Ordered 11/04/20 Ordered By: David Pelaez Referrals: ALEXSANDRA Chavez, ELECTRIC REFRIGERATOR PREPARER [Primary Care Provider] - 1-3 days Discharge Diet: Usual diet Discharge Activity: Limit activity as instructed Patient Instructions: Finger Fracture (ED), Finger Laceration (ED), Opioid Safety Activity Restrictions/Additional Instructions: Return for any new or worsening symptoms. Follow-up with your primary care provider within 3 days for wound evaluation. Have the stitches taken out in 7 to 10 days. 2 stitches to be taken out. Take the antibiotics as prescribed and pain medicine as needed. 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
[2020-11-04 18:04] VITALS: BP 132/75; PULSE 69; RESP 15; O2SAT 94
== END 2020-11-04 18:06 | disposition home or self-care (01) ==
PROVIDERS: Emergency Provider Family Medicine; PCP Nurse Practitioner Family
DX: S62.525A Nondisplaced fracture of distal phalanx of left thumb, initial encounter for closed fracture (principal); S61.112A Laceration without foreign body of left thumb with damage to nail, initial encounter; Z79.82 Long term (current) use of aspirin; Z79.84 Long term (current) use of oral hypoglycemic drugs; J44.9 Chronic obstructive pulmonary disease, unspecified; E11.9 Type 2 diabetes mellitus without complications; I11.0 Hypertensive heart disease with heart failure; I50.9 Heart failure, unspecified; E78.2 Mixed hyperlipidemia; Z87.891 Personal history of nicotine dependence; W22.8XXA Striking against or struck by other objects, initial encounter; Z23 Encounter for immunization
CPT/HCPCS: 12001; 73140; 90471; 90715; 99283

== ENCOUNTER → 2021-03-19 08:25 | Outpatient (BNVA) | payer MEDICARE, MEDICAID, SELFPAY | PROVIDERS: PCP Nurse Practitioner Family; Visit Provider Nurse Practitioner Family | DX: E11.59 Type 2 diabetes mellitus with other circulatory complications (principal); M19.90 Unspecified osteoarthritis, unspecified site; M54.9 Dorsalgia, unspecified | CPT/HCPCS: 80053; 81003; 83036; 85025 ==

== ENCOUNTER → 2021-12-16 10:44 | Outpatient (BNVA) | payer MEDICARE, MEDICAID, SELFPAY | PROVIDERS: PCP Nurse Practitioner Family; Visit Provider Nurse Practitioner | DX: E11.59 Type 2 diabetes mellitus with other circulatory complications (principal); I10 Essential (primary) hypertension; E55.9 Vitamin D deficiency, unspecified | CPT/HCPCS: 80053; 83036; 84443; 85025 ==

== ENCOUNTER → 2022-05-28 13:14 | Outpatient (BNVA) | payer MEDICARE, MEDICAID, SELFPAY | PROVIDERS: PCP Nurse Practitioner Family; Visit Provider Nurse Practitioner | DX: E11.59 Type 2 diabetes mellitus with other circulatory complications (principal); Z23 Encounter for immunization | CPT/HCPCS: 83036 ==

== ENCOUNTER → 2022-06-06 10:38 | Outpatient (BNVA) | payer MEDICARE, MEDICAID, SELFPAY | PROVIDERS: Visit Provider Internal Medicine Cardiovascular Disease | DX: I11.0 Hypertensive heart disease with heart failure (principal); I50.22 Chronic systolic (congestive) heart failure; I25.119 Atherosclerotic heart disease of native coronary artery with unspecified angina pectoris; E78.2 Mixed hyperlipidemia; J44.9 Chronic obstructive pulmonary disease, unspecified; Z87.891 Personal history of nicotine dependence | CPT/HCPCS: 99214 ==

== ENCOUNTER 2022-07-23 11:47 | Outpatient (CLI) | payer MEDICARE, MEDICAID, SELFPAY ==
--- NOTE | 2022-07-23 12:15 | USCV_ITS ---
López Gamez Age: 62 Gender: M : 1960 Exam Date: 07/23/2022 12:00 Ordering Phys: Fatmata Trejo MD ([email or web address]) Technologist: Nga Shore Exam Location: [facility] – [place] Indication: CAD, BP: 132 / 90 HR: 67 Rhythm: Sinus Technical Quality: Adequate MEASUREMENTS (Male / Female) Normal Values 2D ECHO LV Diastolic Diameter PLAX 3.6 cm 4.2 - 5.9 / 3.9 - 5.3 cm LV Systolic Diameter PLAX 4.4 cm IVS Diastolic Thickness 0.7 cm 0.6 - 1.0 / 0.6 - 0.9 cm IVS Systolic Thickness 1.2 cm LVPW Diastolic Thickness 3.7 cm 0.6 - 1.0 / 0.6 - 0.9 cm LVPW Systolic Thickness 1.0 cm LVOT Diameter 2.2 cm LV Ejection Fraction 2D Teich 37.2 % LV Ejection Fraction MOD 2C 56.1 % LV Ejection Fraction 2C AL 56.5 % LA Diameter 3.2 cm LA Width 3.9 cm LA Height 4.4 cm RA Width 3.7 cm RA Height 4.0 cm Aorta at Sinotubular Diameter 3.6 cm IVC Diameter 1.4 cm M-MODE MV E Point Septal Separation 0.6 cm DOPPLER AV Peak Velocity 135.0 cm/s LVOT Peak Velocity 117.0 cm/s AV Area Cont Eq vti 3.1 cm squared AV Area Cont Eq pk 3.3 cm squared MV Peak Velocity 84.0 cm/s MV Area PHT 5.0 cm squared Mitral E to A Ratio 1.1 MV E' Velocity 49.5 cm/s Mitral E to MV E' Ratio 10.4 Mitral E to LV E' Lateral Ratio 9.1 Mitral E to LV E' Septal Ratio 12.3 TR Peak Velocity 123.3 cm/s TR Peak Gradient 6.1 mmHg Right Atrial Pressure 3.0 mmHg Pulmonary Artery Systolic Pressu 9.1 mmHg PV Peak Velocity 67.0 cm/s RV Acceleration Time 0.1 s RV Ejection Time 0.4 s RV AcT/ET 0.4 FINDINGS Left Ventricle Normal left ventricular size, systolic function and wall thickness, with no regional wall motion abnormalities. Left ventricular ejection fraction is estimated at 60 %. Normal diastolic function. Right Ventricle Normal right ventricular size and systolic function. RVSP could not be calculated due to incomplete tricuspid regurgitation velocity profile. Right Atrium Normal right atrial size. Left Atrium Normal left atrial size. Mitral Valve Structurally normal mitral valve. No mitral valve stenosis. Trace mitral valve regurgitation. Aortic Valve Structurally normal trileaflet aortic valve. No aortic valve stenosis. No aortic valve regurgitation. Tricuspid Valve Structurally normal tricuspid valve. No tricuspid valve stenosis. Trace tricuspid valve regurgitation. Pulmonic Valve Structurally normal pulmonic valve. No pulmonary valve stenosis. Trace pulmonary valve regurgitation. Pericardium No pericardial effusion. Aorta Normal size aortic root and proximal ascending aorta. IVC Normal IVC dimension with >50% respiratory change of the inferior vena cava. CONCLUSIONS 1. Normal left ventricular size, systolic function and wall thickness, with no regional wall motion abnormalities. Left ventricular ejection fraction is estimated at 60 %. Normal diastolic function. 2. Normal right ventricular size and systolic function. 3. Trace mitral and tricuspid valve regurgitation. 4. When compared to study dated 09/26/19, left ventricular systolic function has improved. Fatmata Trejo MD (Electronically Signed) Final Date: 27 July 2022 17:44 S
== END 2022-07-23 11:48 | disposition home or self-care (01) ==
LOC: RAD 11:47
PROVIDERS: PCP Nurse Practitioner; Visit Provider Internal Medicine Cardiovascular Disease
DX: I25.10 Atherosclerotic heart disease of native coronary artery without angina pectoris (principal); I50.9 Heart failure, unspecified; R06.02 Shortness of breath; R07.9 Chest pain, unspecified; I08.1 Rheumatic disorders of both mitral and tricuspid valves
CPT/HCPCS: 93306

== ENCOUNTER → 2022-09-16 10:52 | Outpatient (BNVA) | payer MEDICARE, MEDICAID, SELFPAY | PROVIDERS: PCP Nurse Practitioner; Visit Provider Nurse Practitioner | DX: E11.59 Type 2 diabetes mellitus with other circulatory complications (principal) | CPT/HCPCS: 83036 ==

== ENCOUNTER → 2022-12-15 14:55 | Outpatient (BNVA) | payer MEDICARE, MEDICAID, SELFPAY | PROVIDERS: PCP Nurse Practitioner; Visit Provider Nurse Practitioner | DX: E11.59 Type 2 diabetes mellitus with other circulatory complications (principal) | CPT/HCPCS: 83036 ==

== ENCOUNTER → 2023-03-06 09:40 | Outpatient (BNVA) | payer MEDICARE, MEDICAID, SELFPAY | PROVIDERS: PCP Nurse Practitioner; Visit Provider Internal Medicine Cardiovascular Disease | DX: I11.0 Hypertensive heart disease with heart failure (principal); I50.22 Chronic systolic (congestive) heart failure; I25.119 Atherosclerotic heart disease of native coronary artery with unspecified angina pectoris; E78.2 Mixed hyperlipidemia; J44.9 Chronic obstructive pulmonary disease, unspecified; Z87.891 Personal history of nicotine dependence | CPT/HCPCS: 99214 ==

== ENCOUNTER → 2023-04-03 10:08 | Outpatient (BNVA) | payer MEDICARE, MEDICAID, SELFPAY | PROVIDERS: PCP Nurse Practitioner; Visit Provider Nurse Practitioner | DX: E11.59 Type 2 diabetes mellitus with other circulatory complications (principal); E78.2 Mixed hyperlipidemia; I10 Essential (primary) hypertension; E11.9 Type 2 diabetes mellitus without complications | CPT/HCPCS: 80053; 80061; 83036; 84443; 85025 ==

== ENCOUNTER → 2023-07-27 09:15 | Outpatient (BNVA) | payer MEDICARE, MEDICAID, SELFPAY | PROVIDERS: PCP Nurse Practitioner; Visit Provider Nurse Practitioner Family | DX: E55.9 Vitamin D deficiency, unspecified (principal); I10 Essential (primary) hypertension; E78.2 Mixed hyperlipidemia; E11.59 Type 2 diabetes mellitus with other circulatory complications; E78.5 Hyperlipidemia, unspecified; Z12.5 Encounter for screening for malignant neoplasm of prostate; Z79.899 Other long term (current) drug therapy | CPT/HCPCS: 80053; 80061; 81003; 82306; 82607; 82746; 83036; 84443; 85025; G0103 ==

== ENCOUNTER → 2023-08-20 09:16 | Outpatient (BNVA) | payer MEDICARE, MEDICAID, SELFPAY | PROVIDERS: PCP Nurse Practitioner Family; Visit Provider Specialist | DX: G25.2 Other specified forms of tremor (principal) | CPT/HCPCS: 99204 ==

== ENCOUNTER → 2023-08-26 11:45 | Outpatient (BNVA) | payer MEDICARE, MEDICAID, SELFPAY | PROVIDERS: PCP Nurse Practitioner Family; Visit Provider Nurse Practitioner Family | DX: R53.1 Weakness (principal); R97.20 Elevated prostate specific antigen [PSA] | CPT/HCPCS: 81003; 87086 ==

== ENCOUNTER → 2023-09-11 09:17 | Outpatient (BNVA) | payer MEDICARE, MEDICAID, SELFPAY | PROVIDERS: PCP Nurse Practitioner Family; Visit Provider Nurse Practitioner Family | DX: Z12.5 Encounter for screening for malignant neoplasm of prostate (principal) | CPT/HCPCS: G0103 ==

== ENCOUNTER → 2023-11-10 09:23 | Outpatient (BNVA) | payer MEDICARE, MEDICAID, SELFPAY | PROVIDERS: PCP Nurse Practitioner Family; Visit Provider Nurse Practitioner Family | DX: I11.0 Hypertensive heart disease with heart failure (principal); I50.22 Chronic systolic (congestive) heart failure; I25.119 Atherosclerotic heart disease of native coronary artery with unspecified angina pectoris; Z87.891 Personal history of nicotine dependence | CPT/HCPCS: 99214 ==

== ENCOUNTER 2024-01-30 01:11 | Emergency (ER) | payer MEDICARE, MEDICAID, SELFPAY ==
[2024-01-30 01:12] VITALS: BP 142/79; PULSE 61; RESP 20; TEMP 36.9; O2SAT 98; BMI 28.4
[2024-01-30 03:00] VITALS: BP 152/92; PULSE 67; RESP 16; O2SAT 99
[2024-01-30] MEDS: sodium chloride 0.9% 1,000 ML 999 ML IV (03:25)
[2024-01-30] MEDS: ondansetron 2 mg/ML SDV 2 mL 4 MG IVP (03:25)
[2024-01-30 03:54] LABS: Add Urine Microscopic? YES; Bilirubin Urine Neg (Negative); Blood Urine 2+ (Negative); Glucose Urine UA 4+ (Normal); Ketones Urine 2+ (Negative); Leukocyte Esterase Urine Trace (Negative); Nitrate Urine Negative (Negative); Protein Urine Neg (Negative); Specific Gravity, Urine 1.015 (1.005-1.030); Urine Appearance Slightly Cloudy (CLEAR); Urine Color Yellow (Yellow); Urobilinogen Urine Neg (Negative); pH Urine 5 (5-7)
[2024-01-30 03:55] LABS: Bacteria Urine 1+ /hpf; Hyaline Casts Urine 0-4 /lpf; Mucus Urine 2+ /hpf; RBC Urine 0-4 /hpf (0-2); Squamous Epithelial Cell Urine 0-4 /hpf (0-5)
[2024-01-30 04:05] LABS: Basophils % 0.3 %; Eosinophils % 0.2 %; Hematocrit 46.2 % (37-53); Lymphocytes # 1.7 10^3/uL (0.8-4.8); Lymphocytes % 16.8 %; Mean Corpuscular HGB Conc 33.3 g/dL (30-55); Mean Corpuscular Hemoglobin 27.8 pg (27-33); Mean Corpuscular Volume 83.5 fl (82-101); Monocytes # 0.9 10^3/uL (0.2-0.9); Monocytes % 8.5 %; Neutrophils # 7.56 10^3/uL (1.8-7.7); Neutrophils % 73.8 %; Nucleated Red Blood Cells % 0 %; Platelet Count 290 10^3/cmm (157-399); Red Blood Count 5.53 10^6/uL (3.85-5.65); Red Cell Distribution Width 14.2 % (12.1-15.1); White Blood Count 10.24 10^3/uL (3.29-11.43)
[2024-01-30 04:27] LABS: Alanine Aminotransferase 20 U/L (0-41); Alkaline Phosphatase 64 U/L (40-130); Blood Urea Nitrogen 11 mg/dL (8-23); Calcium 9.2 mg/dL (8.5-10.5); Carbon Dioxide 22 mmol/L (22-29); Chloride 101 mmol/L (98-107); Globulin 3.9 g/dL (1.3-4.6); Glomerular Filtration Rate 167.4 mL/min (90-130); Glucose 126 mg/dL (65-115); Osmolality Calculated 285 mOsm/kg (285-295); Sodium 137 mmol/L (136-145); Total Bilirubin 0.8 mg/dL (0.15-1.2); Total Protein 7.9 g/dL (6.6-8.7)
[2024-01-30 04:29] LABS: Anion Gap 17.8 (5-19); Aspartate Amino Transferase 20 U/L (0-40); Potassium 3.8 mmol/L (3.5-5.1)
[2024-01-30 05:00] VITALS: BP 134/74; PULSE 56; RESP 18; O2SAT 93
[2024-01-30 06:00] VITALS: BP 136/85; PULSE 56; RESP 16; O2SAT 95
--- NOTE | 2024-01-30 06:01 | ED_ITS ---
HPI - Nausea/Vomiting/Diarrhea 2 General: Chief complaint: Nausea/Vomiting/Diarrhea Stated complaint: Weakness N/V Time Seen by Provider: 01/30/24 02:50 History of Present Illness: The patient presents to the ER with chief complaint of dizziness, nausea, and vomiting. The patient reports that these symptoms began after taking a shower and attempting to eat. The patient suspects dehydration as a possible cause, as they had not consumed much water prior to the onset of symptoms. The dizziness has been persistent for the past three days. The patient sought medical attention at another facility, where they were advised to take it easy and return if symptoms worsened. The patient has experienced dehydration in the past, but without the accompanying dizziness. The patient reports that they were able to eat a small amount and felt better temporarily, but the symptoms returned, including headache, dizziness, and vomiting. The patient has a medical history of COPD, diabetes, and three heart attacks, with a stent placed in their heart. The patient is concerned about their current condition and feels that it is unusual for them to be unable to engage in their usual activities. Review of Systems 2 General: Reports: 10 or more systems reviewed and unremarkable except in HPI and below PFSH ED 2 PFSH: Medical History Elevated PSA Family history of Prostate Cancer Tremor of right hand Influenza vaccine needed Osteoarthritis Mixed hyperlipidemia Urgency of urination CHF (congestive heart failure) Essential hypertension, benign Vitamin D deficiency Infection of toe web Patient has been treated for infection of foot with oral and topical meds. COPD (chronic obstructive pulmonary disease) Patient is currently well controlled with Trelegy and rescue inhaler Diabetes Patient has DM II and is on oral meds. Patient's glucose remains elevated, continue to titrate medications. Surgical History Presence of stent in LAD coronary artery Drug-eluting stent to proximal LAD 09/26/19 S/P cholecystectomy 2016 Dr. Mcgill Social History Smoking and tobacco/nicotine status: former use of tobacco/nicotine Second hand smoke exposure: No Alcohol intake: never Substance/Drug Use: never Physical Exam 2 Const: COMMON NORMALS: no acute distress, patient oriented x3, healthy appearing, alert and well nourished HENMT: COMMON NORMALS: normocephalic HEAD & SCALP: normocephalic Eye: COMMON NORMALS: EOMs intact bilaterally Neck/C-Spine: COMMON NORMALS: full ROM and supple Resp: COMMON NORMALS: normal respiratory effort, No retractions and clear to auscultation bilaterally AUSCULTATION: clear to auscultation bilaterally Cardio: COMMON NORMALS: regular rate, regular rhythm, No gallops present (Cardio) and No murmurs present (Cardio) RATE: regular rate RHYTHM: r egular rhythm GI: COMMON NORMALS: Soft to palpation and non-tender PALPATION: Yes Soft to palpation Extremity: GENERAL: Yes normal exam except as noted Neuro: COMMON NORMALS: patient oriented x3 SENSORIUM/ORIENTATION: Yes alert Skin: COMMON NORMALS: no rashes or lesions noted GENERAL SKIN EXAM: no rashes or lesions noted Course 2 Vital Signs: Vital signs: Vital Signs Temperature 98.4 F 01/30/24 01:12 Pulse Rate 61 01/30/24 01:12 Respiratory Rate 20 H 01/30/24 01:12 Blood Pressure 142/79 01/30/24 01:12 Pulse Oximetry 98 01/30/24 01:12 Oxygen Delivery Me thod Room Air 01/30/24 01:12 MDM - Nausea/Vomiting/Diarrhea Medical Decision Making 63-year-old male presents to the emergency department for evaluation of dizziness, nausea, vomiting. Patient's symptoms significantly reduced with hydration and antiemetics. He was feeling significantly improved prior to discharge. His initial evaluation was globally unremarkable with just some slight hyperglycemia. Discussed with the patient his differential diagnosis of gastrointestinal virus, dehydration, and cardiovascular disease. Patient agreed that discharge was appropriate this time. Patient was discharged home in good condition. Return precautions discussed. Lab Data 01/30/24 04:01 01/30/24 04:01 Laboratory Results WBC 10.24 10^3/uL (3.29-11.43) 01/30/24 04:01 RBC 5.53 10^6/uL (3.85-5.65) 01/30/24 04:01 Hgb 15.40 g/dL (11.27-16.99) 01/30/24 04:01 Hct 46.2 % (37-53) 01/30/24 04:01 MCV 83.5 fl (82-101) 01/30/24 04:01 MCH 27.8 pg (27-33) 01/30/24 04:01 MCHC 33.3 g/dL (30-55) 01/30/24 04:01 RDW 14.2 % (12.1-15.1) 01/30/24 04:01 Plt Count 290 10^3/cmm (157-399) 01/30/24 04:01 MPV 9.0 fL (7.4-10.4) 01/30/24 04:01 Neut % (Auto) 73.8 % 01/30/24 04:01 Lymph % (Auto) 16.8 % 01/30/24 04:01 [place] % (Auto) 8.5 % 01/30/24 04:01 Eos % (Auto) 0.2 % 01/30/24 04:01 Baso % (Auto) 0.3 % 01/30/24 04:01 Neut # (Auto) 7.56 10^3/uL (1.8-7.7) 01/30/24 04:01 Lymph # (Auto) 1.7 10^3/uL (0.8-4.8) 01/30/24 04:01 [place] # (Auto) 0.9 10^3/uL (0.2-0.9) 01/30/24 04:01 Eos # (Auto) 0.0 10^3/uL (0.0-0.8) 01/30/24 04:01 Baso # (Auto) 0.0 10^3/uL (0.0-0.1) 01/30/24 04:01 Nucleated RBC % (auto) 0 % 01/30/24 04:01 Nucleated RBCs # 0.0 /100WBC 01/30/24 04:01 Sodium 137 mmol/L (136-145) 01/30/24 04:01 Potassium 3.8 mmol/L (3.5-5.1) 01/30/24 04:01 Chloride 101 mmol/L (98-107) 01/30/24 04:01 Carbon Dioxide 22 mmol/L (22-29) 01/30/24 04:01 Anion Gap 17.8 (5-19) 01/30/24 04:01 BUN 11 mg/dL (8-23) 01/30/24 04:01 Creatinine 0.5 mg/dL (0.7-1.2) L 01/30/24 04:01 GFR Calculation 167.4 mL/min (90-130) H 01/30/24 04:01 Glucose 126 mg/dL (65-115) H 01/30/24 04:01 Calculated Osmolality 285 mOsm/kg (285-295) 01/30/24 04:01 Calcium 9.2 mg/dL (8.5-10.5) 01/30/24 04:01 Total Bilirubin 0.8 mg/dL (0.15-1.2) 01/30/24 04:01 AST 20 U/L (0-40) 01/30/24 04:01 ALT 20 U/L (0-41) 01/30/24 04:01 Alkaline Phosphatase 64 U/L (40-130) 01/30/24 04:01 Total Protein 7.9 g/dL (6.6-8.7) 01/30/24 04:01 Albumin 4.0 g/dL (3.5-5.2) 01/30/24 04:01 Globulin 3.9 g/dL (1.3-4.6) 01/30/24 04:01 Urine Color Yellow (Yellow) 01/30/24 03:36 Urine Appearance Slightly cloudy (CLEAR) 01/30/24 03:36 Urine pH 5 (5-7) 01/30/24 03:36 Ur Specific [place] 1.015 (1.005-1.030) 01/30/24 03:36 Urine Protein Neg (Negative) 01/30/24 03:36 Urine Glucose (UA) 4+ (Normal) H 01/30/24 03:36 Urine Ketones 2+ (Negative) H 01/30/24 03:36 Urine Blood 2+ (Negative) H 01/30/24 03:36 Urine Nitrate Negative (Negative) 01/30/24 03:36 Urine Bilirubin Neg (Negative) 01/30/24 03:36 Urine Urobilinogen Neg mg/dL (Negative) 01/30/24 03:36 Ur Leukocyte Esterase Trace (Negative) H 01/30/24 03:36 Urine RBC 0-4 /hpf (0-2) H 01/30/24 03:36 Urine WBC 5-10 /hpf (0-5) H 01/30/24 03:36 Ur Squamous Epith Cells 0-4 /hpf (0-5) H 01/30/24 03:36 Amorphous Sediment Not Reportable 01/30/24 03:36 Urine Bacteria 1+ /hpf (NONE) H 01/30/24 03:36 Hyaline Casts 0-4 /lpf H 01/30/24 03:36 Urine Mucus 2+ /hpf 01/30/24 03:36 No radiology studies performed this visit Discharge Plan Discharge Patient Disposition: Home Clinical Impression: Dehydration, Generalized weakness Condition: Stable Prescriptions: No Action ibuprofen 800 mg tablet 800 mg PO Q8H PRN (Reason: pain) Qty: 90 2RF cholecalciferol (vitamin D3) 1,250 mcg (50,000 unit) capsule 50,000 unit PO .weekly 90 Days Qty: 13 0RF aspirin 81 mg tablet,delayed release (DR/EC) 81 mg PO DAILY (DME) blood-glucose meter [Accu-Chek Isabel Plus Meter] [facility] [place], [place] See Rx Instructions .ROUTE .MEDSUPPLY Qty: 1 0RF Rx Instructions: use to check blood sugar daily (DME) Accu-Chek Isabel Plus test strp Strip See Rx Instructions .ROUTE .MEDSUPPLY Qty: 100 5RF Rx Instructions: use to check blood sugar daily glipizide 10 mg tablet See Rx Instructions .ROUTE .COMPLEX Qty: 60 0RF Dose Instruction: TAKE TWO TABLETS BY MOUTH EVERY DAY Rx Instructions: TAKE TWO TABLETS BY MOUTH EVERY DAY primidone 50 mg tablet 50 mg PO BID Qty: 180 3RF citalopram 20 mg tablet See Rx Instructions .ROUTE .COMPLEX Qty: 30 5RF Dose Instruction: TAKE ONE TABLET BY MOUTH EVERY DAY Rx Instructions: TAKE ONE TABLET BY MOUTH EVERY DAY atorvastatin 40 mg tablet 40 mg PO BEDTIME Qty: 90 3RF Jardiance 25 mg tablet See Rx Instructions .ROUTE .COMPLEX Qty: 30 3RF Dose Instruction: TAKE 1 TABLET BY MOUTH EVERY DAY Rx Instructions: TAKE 1 TABLET BY MOUTH EVERY DAY lisinopril 5 mg tablet 5 mg PO DAILY Qty: 90 3RF metoprolol succinate 25 mg tablet extended release 24 hr 25 mg PO DAILY 30 Days Qty: 30 3RF omeprazole 40 mg capsule,delayed release(DR/EC) See Rx Instructions .ROUTE .COMPLEX Qty: 30 5RF Dose Instruction: TAKE ONE CAPSULE BY MOUTH DAILY Rx Instructions: TAKE ONE CAPSULE BY MOUTH DAILY Januvia 100 mg tablet See Rx Instructions .ROUTE .COMPLEX Qty: 30 2RF Dose Instruction: TAKE 1 TABLET BY MOUTH EVERY DAY FOR 30 DAYS Rx Instructions: TAKE 1 TABLET BY MOUTH EVERY DAY FOR 30 DAYS metformin 1,000 mg tablet See Rx Instructions .ROUTE .COMPLEX Qty: 60 2RF Dose Instruction: TAKE 1 TABLET BY MOUTH TWICE DAILY Rx Instructions: TAKE 1 TABLET BY MOUTH TWICE DAILY Trelegy Ellipta 100-62.5-25 mcg blister with device See Rx Instructions .ROUTE .COMPLEX Qty: 60 2RF Dose Instruction: USE 1 INHALATION BY MOUTH EVERY DAY Rx Instructions: USE 1 INHALATION BY MOUTH EVERY DAY Discharge Orders: Discharge ED (Routine); Ordered 01/30/24 Ordered By: Jose Law Referrals: ALEXSANDRA Chavez, RECONSTRUCTIVE SURGEON [Primary Care Provider] - Discharge Diet: Advance as tolerated Discharge Activity: Increase activity as tolerated Patient Instructions: Opioid Safety, Pain Management Activity Restrictions/Additional Instructions: Please return to the emergency department with any new or worsening symptoms. If unable to tolerate oral hydration or any other concern. Coding Level of Care Code ED Securities Teller for Caleb Hilton
== END 2024-01-30 06:16 | disposition home or self-care (01) ==
PROVIDERS: Emergency Provider General Practice; PCP Nurse Practitioner Family
DX: R53.1 Weakness (principal); E86.0 Dehydration; Z79.82 Long term (current) use of aspirin; Z79.84 Long term (current) use of oral hypoglycemic drugs; E78.2 Mixed hyperlipidemia; I11.0 Hypertensive heart disease with heart failure; I50.9 Heart failure, unspecified; J44.9 Chronic obstructive pulmonary disease, unspecified; E11.9 Type 2 diabetes mellitus without complications; Z87.891 Personal history of nicotine dependence
CPT/HCPCS: 80053; 81001; 85025; 96361; 96374; 99284; J2405; J7030

== ENCOUNTER → 2024-05-02 12:58 | Outpatient (BNVA) | payer MEDICARE, MEDICAID, SELFPAY | PROVIDERS: PCP Nurse Practitioner Family; Visit Provider Nurse Practitioner Family | DX: Z12.5 Encounter for screening for malignant neoplasm of prostate (principal); E55.9 Vitamin D deficiency, unspecified; I10 Essential (primary) hypertension; I50.22 Chronic systolic (congestive) heart failure; E11.59 Type 2 diabetes mellitus with other circulatory complications; R97.20 Elevated prostate specific antigen [PSA] | CPT/HCPCS: 80053; 80061; 81003; 82306; 83036; 84443; 85025; G0103 ==

== ENCOUNTER → 2024-09-13 15:08 | Outpatient (BNVA) | payer MEDICARE, MEDICAID, SELFPAY | PROVIDERS: PCP Nurse Practitioner Family; Visit Provider Nurse Practitioner Family | DX: E11.59 Type 2 diabetes mellitus with other circulatory complications (principal) | CPT/HCPCS: 83036 ==

== ENCOUNTER → 2024-10-10 14:45 | Outpatient (BNVA) | payer MEDICARE, MEDICAID, SELFPAY | PROVIDERS: PCP Nurse Practitioner Family; Visit Provider Internal Medicine | DX: I11.0 Hypertensive heart disease with heart failure (principal); I50.22 Chronic systolic (congestive) heart failure; I25.119 Atherosclerotic heart disease of native coronary artery with unspecified angina pectoris; E78.2 Mixed hyperlipidemia; J44.9 Chronic obstructive pulmonary disease, unspecified; Z87.891 Personal history of nicotine dependence | CPT/HCPCS: 99214 ==

== ENCOUNTER 2024-10-21 09:28 | Outpatient (CLI) | payer MEDICARE, MEDICAID, SELFPAY ==
--- NOTE | 2024-10-21 | ECG_ITS ---
[employer] Test Date: 2024-10-21 Pat Name: López Gamez Department: Room: Gender: Male Monotypist: : 1960 Requested By: Cirilo Maher Order Number: [id number] Jennifer MD: Cirilo Maher M.D. Interpretive Statements LEXISCAN: Procedure: At the baseline, the blood pressure was 134/96 mmHg with a heart rate of 61 bpm. The electrocardiogram showed normal sinus rhythm, normal axis with normal ST and T's. The Lexiscan was infused over a period of 20 seconds. A total of 0.4 mg of Lexiscan was infused. The stress phase was continued for a total of 5 minutes. Heart rate was at the end of stress phase was 75 bpm and a blood pressure of 175/116 mmHg. The EKG at the peak infusion revealed normal sinus rhythm with no significant ST-T wave changes. Sestamibi was injected 20 seconds after the Lexiscan infusion. Blood pressure at the end of recovery phase was 176/96 mmHg with a heart rate of 74 bpm. Conclusion: 1. Normal EKG response to Lexiscan infusion 2. No Lexiscan induced chest pain or cardiac arrhythmia. 3. Normal blood pressure and heart rate response. 4. Sestamibi/sestamibi perfusion scan pending; see separate report. Electronically Signed On 10-30-2024 01:30:27 CDT by Cirilo Maher M.D. [email or web address]
[2024-10-21 09:44] VITALS: BMI 29.8
--- NOTE | 2024-10-21 09:44 | NMCV_ITS ---
NM lance perf SPECT r/s* [id number] Benitoodette López Age: 64 Gender: M : 1960 Exam Date: 10/21/2024 10:28 Ordering Phys: Cirilo Maher M.D ([email or web address]) Technologist: MIN Gilbert Exam Location: [facility] Indications: cp STRESS TEST [facility] IMAGE PROTOCOL Rest/Stress 1 Lexiscan Day Radiopharmaceutical Dose (mCi) Administration Site Administered by Rest: Tc-99m 10.5 IV MIN Gilbert Sestamibi Stress:Tc-99m 32.6 IV MIN Alberto Sestamibi Rest: 21-Oct-2024 60 Discovery 630 Stress: 21-Oct-2024 30 Discovery 630 0.4mg Lexiscan. Images obtained in supine and prone position. SPECT RESULTS Technical Quality: Good Raw Data Analysis: Normal Image Corrections: No attenuation or motion correction applied Summed Stress Score: 3 Summed Rest Score: 7 Summed Difference Score: 2 PERFUSION FINDINGS There is a small to medium sized area of partially reversible perfusion defect seen in the apical lateral wall. 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 FUNCTIONAL RESULTS (calculated via Gated SPECT) Stress Image LV EF (%): 39 Stress EDV (mL):169 TID: 0.94 Stress ESV (mL):103 FUNCTIONAL FINDINGS: LV systolic function is moderately reduced with EF of 39% IMPRESSIONS 1. 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 2. LV systolic function is moderately reduced with EF of 39% Cirilo Maher MD (Electronically Signed) Final Date: 26 October 2024 12:13 S
[2024-10-21] MEDS: regadenoson 0.4 Mg/5 ml Syringe IVP (10:51)
[2024-10-21 11:08] VITALS: BP 176/96; PULSE 79
== END 2024-10-21 09:29 | disposition home or self-care (01) ==
LOC: CDL 09:28
PROVIDERS: PCP Nurse Practitioner Family; Visit Provider Internal Medicine
DX: R07.9 Chest pain, unspecified (principal); R06.02 Shortness of breath; R93.1 Abnormal findings on diagnostic imaging of heart and coronary circulation
CPT/HCPCS: 36415; 78452; 93017; 96374; A9500; J2785

== ENCOUNTER 2024-10-25 07:56 | Outpatient (CLI) | payer MEDICARE, MEDICAID, SELFPAY ==
--- NOTE | 2024-10-25 08:15 | USR_ITS ---
PROCEDURE INFORMATION: Exam: US Duplex Bilateral Lower Extremity Arteries Exam date and time: 10/25/2024 8:08 AM Age: 64 years old Clinical indication: Pain; Leg, lower; Bilateral; Additional info: Bilateral leg pain TECHNIQUE: Imaging protocol: Real-time ultrasound scan of the arteries of the bilateral lower extremities with 2-D miller scale, color Doppler flow and spectral waveform analysis. Images documented and saved. COMPARISON: No relevant prior studies available. FINDINGS: Right common femoral artery: No occlusion or significant stenosis. Normal waveform. Right superficial femoral artery: No occlusion or significant stenosis. Normal waveform. Right popliteal artery: No occlusion or significant stenosis. Normal waveform. Right calf/foot arteries: No occlusion or significant stenosis in the visualized arteries. Normal waveforms. Dorsalis pedis artery is patent. Left common femoral artery: No occlusion or significant stenosis. Normal waveform. Left superficial femoral artery: No occlusion or significant stenosis. Normal waveform. Left popliteal artery: No occlusion or significant stenosis. Normal waveform. Left calf/foot arteries: No occlusion or significant stenosis in the visualized arteries. Normal waveforms. Dorsalis pedis artery is patent. US/CV arterial duplex [facility] [id number] IMPRESSION: No stenosis or occlusion.
== END 2024-10-25 07:57 | disposition home or self-care (01) ==
PROVIDERS: PCP Nurse Practitioner Family; Visit Provider Internal Medicine
DX: M79.604 Pain in right leg (principal); M79.605 Pain in left leg
CPT/HCPCS: 93925

== ENCOUNTER → 2024-12-26 10:22 | Outpatient (BNVA) | payer MEDICARE, MEDICAID, SELFPAY | PROVIDERS: PCP Nurse Practitioner Family; Visit Provider Nurse Practitioner Family | DX: I10 Essential (primary) hypertension (principal); E78.2 Mixed hyperlipidemia; E11.59 Type 2 diabetes mellitus with other circulatory complications; R97.20 Elevated prostate specific antigen [PSA] | CPT/HCPCS: 80053; 80061; 81003; 83036; 84153; 85025 ==

== ENCOUNTER → 2025-03-16 14:26 | Outpatient (BNVA) | payer MEDICARE, MEDICAID, SELFPAY | PROVIDERS: PCP Nurse Practitioner Family; Visit Provider Nurse Practitioner Family | DX: E11.649 Type 2 diabetes mellitus with hypoglycemia without coma (principal); E11.59 Type 2 diabetes mellitus with other circulatory complications | CPT/HCPCS: 80053; 83036 ==

== ENCOUNTER → 2025-07-10 13:37 | Outpatient (BNVA) | payer MEDICARE, MEDICAID, SELFPAY | PROVIDERS: PCP Nurse Practitioner Family; Visit Provider Internal Medicine | DX: I25.10 Atherosclerotic heart disease of native coronary artery without angina pectoris (principal); Z87.891 Personal history of nicotine dependence; E11.9 Type 2 diabetes mellitus without complications; Z79.84 Long term (current) use of oral hypoglycemic drugs; I11.0 Hypertensive heart disease with heart failure; I50.22 Chronic systolic (congestive) heart failure | CPT/HCPCS: 99213 ==